=== PATIENT | female | born 1935 | race Caucasian/White ===

== ENCOUNTER 2018-05-02 15:27 | Observation (INO) ==
--- NOTE | 2018-05-02 15:48 | Emergency Department Note ---
Disposition Clinical Impression: Weakness, Shortness of breath Failure to thrive Qualifiers: Failure to thrive age range: in adult Qualified Code(s): R62.7 - Adult failure to thrive Disposition: Still a Patient Condition: Fair Referrals: Tu Rascon DO [Primary Care Provider] - Forms: ED Satisfaction Letter, Work/School Release Time of Disposition: 17:45 General Adult HPI - General Chief complaint: ED Abdominal Pain Stated complaint: BILLIE Time Seen by Provider: 05/02/18 15:33 Source: patient, family Limitations: no limitations Nursing Notes Reviewed: Yes Vital Signs Reviewed: Yes - History of Present Illness HPI Narrative: 82-year-old female presents from home with [id number] bedside for evaluation of weakness and shortness of breath. This was present 7 days ago upon admission to this hospital for in STEMI with the patient had a stent placement in LAD. She was discharged 5 days ago. Since then, she has had worsening shortness of breath, worsening weakness. Shortness of breath and weakness worsened with mild exertion. She has difficulty ambulating, nausea, chills. She has been compliant with her medications. Patient lives at home with her son. She does have a walker however, she for currently has to sit and rest as well as use the bro and table tops for support. Her appetite is dwindling. She states that she feels like she is just getting weaker and weaker. PMH: Hypertension, hyperlipidemia, CAD status post PCI. No history of COPD or tobacco use. ROS: Positive: As above Negative: Fever, chest pain, palpitations, diaphoresis, numbness, tingling, falls, confusion Pain Scale: 0 - Related Data Home Medications Medication Instructions Recorded Confirmed Amlodipine Besylate 5 mg PO DAILY 04/25/18 05/02/18 raNITIdine HCl [Zantac] 150 mg PO BID 04/25/18 05/02/18 Previous Rx's Medication Instructions Recorded Aspirin 81 mg PO DAILY #30 tab.chew 04/27/18 Atorvastatin [Lipitor] 40 mg PO HS #30 tablet 04/27/18 Lisinopril [Zestril] 10 mg PO DAILY #30 tablet 04/27/18 Metoprolol XL (24 HR) Succ [Toprol 50 mg PO DAILY #30 tab.er.24h 04/27/18 Xl] Ticagrelor [Brilinta] 90 mg PO BID #60 tablet 04/27/18 Allergies Allergy/AdvReac Type Severity Reaction Status Date / Time No Known Allergies Allergy Verified 04/25/18 10:27 All systems ED: reviewed and negative except as stated. Review of Systems: As Per HPI Past Medical History - Past Medical History Medical history: Reports: arthritis, GERD, hyperlipidemia, hypertension, myocardial infarction Psychiatric history: Reports: no psych history - Social History Smoking Status: Never smoker Smokeless Tobacco Status: No Alcohol use: Reports: none Drug use: Reports: none Physical Exam Vital Signs Reviewed General: Patient is alert, oriented, and in mild distress-she feels short of breath was oxygenating well on room air, has chills. Head: atraumatic, normocephalic Eye: normal appearance, PERRL, EOMI, no scleral icterus, no conjunctival injection ENT: mucous membranes moist, normal external ear exam Neck: normal inspection, trachea midline, full ROM Chest: normal inspection, symmetric chest rise Respiratory: Good respiratory effort. Bilateral breath sounds are clear without wheezing, crackles, or rhonchi. Cardiovascular: Regular rate and rhythm. No clicks, rubs, gallops, or murmors. Normal heart sounds. Bilateral posterior tibial pulses 2/4 and equal. Abdomen: Bowel sounds present normoactive. Abdomen is soft, nondistended. Suprapubic tenderness. No guarding or rebound. Musculoskeletal: Spontaneously moving all extremities. Skin: warm, dry, intact. Neuro: GCS 15. Alert and oriented x4. Psych: Patient's affect is appropriate for situation. - General Limitations: no limitations General appearance: alert, in no apparent distress Course Course Narrative: Initial concern is for potential UTI as the patient had a Agarwal catheter on previous admission and has suprapubic tenderness. Will also perform chest pain workup chest x-ray. Cadd Operator report from 04/27/2018 showed LUCY placed to mid LAD. LV EF 30-35%. EKG dated 05/02/2018 at 15:38 interpreted as sinus rhythm with a rate of 77. AK 183, QRS 111, QTC 48. Left axis. Left anterior fascicular block. T-wave inversions in precordial leads new from comparison EKG dated 04/25/2018. Serum hematology is unremarkable. No leukocytosis, leukocytopenia, left shift, or anemia. Serum chemistry shows a troponin of 0.08. This is trending down from her NSTEMI 7 days ago. Patient is compliant with her aspirin and brilenta and has no chest pain. CTA chest and chest x-ray are unremarkable. On reevaluation, patient continues to feel weak with tachypnea. Concern for generalized weakness, potential failure to thrive, and shortness of breath. After discussing with the patient and [id number] at bedside, they do not feel safe going home. I am concerned for her weakness, dyspnea, and probable failure to thrive. Patient potentially could benefit from rehabilitation. Patient and family are agreeable to admission. I discussed the above with the admitting hospitalist, Dr. Fischer, who agrees to accept the patient. Chest X-Ray 05/02/18 15:44 IMPRESSION: Clear lungs. No acute abnormality. No significant change from the prior study. Slight bullous changes suspected. D/ / Saad Francois MD / Saad Francois MD Interpreting Provider: Saad Francois MD Chest CTA 05/02/18 17:51 IMPRESSION: 1. No pulmonary embolus. 2. Scattered areas of streaky atelectasis within the lung parenchyma. 3. Small hiatal hernia. 4. Hepatic steatosis. D/ / Ferdinand Jovel / Ferdinand Jovel Interpreting Provider: Ferdinand Jovel Vital Signs Temperature 97.8 F 05/02/18 15:32 Pulse Rate 75 05/02/18 15:32 Respiratory Rate 22 05/02/18 15:32 Blood Pressure 156/89 05/02/18 15:32 O2 Sat by Pulse Oximetry 100 05/02/18 15:32 Temperature 97.8 F 05/02/18 15:32 Pulse Rate 72 05/02/18 19:14 Respiratory Rate 20 05/02/18 19:14 Blood Pressure 118/67 05/02/18 19:14 O2 Sat by Pulse Oximetry 99 05/02/18 19:14 Oxygen Delivery Oxygen Delivery Nasal Cannula Medical Decision Making - Lab Data Result diagrams: 05/02/18 15:50 12/03/18 15:50 Lab Results 05/02/18 05/02/18 05/02/18 Range/Units 15:50 15:50 15:50 WBC 8.5 (4.3-11.1) K/mcL RBC 4.74 (3.82-4.97) M/mcL Hgb 14.5 (11.5-15.4) g/dL Hct 43.7 (35.3-44.9) % MCV 92.2 (83.0-100.0) fL MCH 30.6 (28.0-33.3) pg MCHC 33.2 (31.6-35.5) g/dL RDW 13.9 (11.5-14.5) % Plt Count 326 (140-400) K/mcL MPV 10.5 (9.4-12.4) fL Immature Gran % 0.2 (0-4) % Seg Neutrophils % 64.4 % Lymphocytes % 24.4 % Monocytes % 9.1 % Eosinophils % 1.5 % Basophils % 0.4 % Neutrophils # 5.5 (1.6-8.9) K/mcL Lymphocytes # 2.1 (0.6-4.6) K/mcL Monocytes # 0.8 (0.0-1.3) K/mcL Eosinophils # 0.1 (0.0-0.6) K/mcL Basophils # 0.0 (0.0-0.2) K/mcL Sample Site ABG pH (7.32-7.45) pH Units ABG pCO2 (35-45) mmHg ABG pO2 (85-104) mmHg ABG HCO3 (21-27) mEq/L ABG Total CO2 (20-26) mEq/L ABG O2 Saturation (95-98) % ABG Base Excess (-2 to 3) mEq/L Fadi Test O2 Delivery Device Inspired O2 (1-15=lpm [id number]=%) Sodium 137 (136-145) mEq/L Potassium 4.6 (3.5-5.1) mEq/L Chloride 104 (98-107) mEq/L Carbon Dioxide 22 L (23-29) mEq/L BUN 23 (8-23) mg/dL Creatinine 1.20 (0.60-1.20) mg/dL Est GFR ( Amer) 52 L (> 60) Est GFR (Non-Af Amer) 43 L (> 60) BUN/Creatinine Ratio 19 (6-26) Glucose 106 H (70-105) mg/dL Calculated Osmolality 288 (280-300) Lactic Acid 1.1 (0.5-2.2) mmol/L Calcium 10.1 (8.6-10.3) mg/dL Magnesium 2.0 (1.6-2.6) mg/dL Total Bilirubin 0.7 (0.3-1.0) mg/dL AST 30 (13-39) Units/L ALT 34 (7-52) Units/L Alkaline Phosphatase 71 (34-104) Units/L Troponin I 0.08 H* (< 0.04) ng/mL Serum Total Protein 7.3 (6.4-8.9) g/dL Albumin 4.4 (3.5-5.7) g/dL Globulin 2.9 (2.4-3.5) g/dL Albumin/Globulin Ratio 1.5 (1.1-2.2) Urine Color (Yellow) Urine Clarity (Clear) Urine pH (5.0-8.0) pH Units Ur Specific [place] (1.010-1.025) Urine Protein (Neg-Trace) mg/dL Urine Glucose (UA) (Normal) mg/dL Urine Ketones (Negative) mg/dL Urine Blood (Negative) Urine Nitrite (Negative) Urine Bilirubin (Negative) Urine Urobilinogen (Normal) mg/dL Ur Leukocyte Esterase (Negative) Urine Microscopic RBC (0-3) per hpf Urine Microscopic WBC (0-3) per hpf Ur Squamous Epith Cells (None-Few) per lpf Urine Bacteria (None-Few) per hpf Hyaline Casts (None-Few) per lpf Ur Culture Indicated? (NO) 05/02/18 05/02/18 Range/Units 16:02 17:30 WBC (4.3-11.1) K/mcL RBC (3.82-4.97) M/mcL Hgb (11.5-15.4) g/dL Hct (35.3-44.9) % MCV (83.0-100.0) fL MCH (28.0-33.3) pg MCHC (31.6-35.5) g/dL RDW (11.5-14.5) % Plt Count (140-400) K/mcL MPV (9.4-12.4) fL Immature Gran % (0-4) % Seg Neutrophils % % Lymphocytes % % Monocytes % % Eosinophils % % Basophils % % Neutrophils # (1.6-8.9) K/mcL Lymphocytes # (0.6-4.6) K/mcL Monocytes # (0.0-1.3) K/mcL Eosinophils # (0.0-0.6) K/mcL Basophils # (0.0-0.2) K/mcL Sample Site L Radial ABG pH 7.50 H (7.32-7.45) pH Units ABG pCO2 25 L (35-45) mmHg ABG pO2 99 (85-104) mmHg ABG HCO3 20 L (21-27) mEq/L ABG Total CO2 20 (20-26) mEq/L ABG O2 Saturation 98 (95-98) % ABG Base Excess -2 (-2 to 3) mEq/L Fadi Test Positive O2 Delivery Device Cannula Inspired O2 2.0 (1-15=lpm [id number]=%) Sodium (136-145) mEq/L Potassium (3.5-5.1) mEq/L Chloride (98-107) mEq/L Carbon Dioxide (23-29) mEq/L BUN (8-23) mg/dL Creatinine (0.60-1.20) mg/dL Est GFR ( Amer) (> 60) Est GFR (Non-Af Amer) (> 60) BUN/Creatinine Ratio (6-26) Glucose (70-105) mg/dL Calculated Osmolality (280-300) Lactic Acid (0.5-2.2) mmol/L Calcium (8.6-10.3) mg/dL Magnesium (1.6-2.6) mg/dL Total Bilirubin (0.3-1.0) mg/dL AST (13-39) Units/L ALT (7-52) Units/L Alkaline Phosphatase (34-104) Units/L Troponin I (< 0.04) ng/mL Serum Total Protein (6.4-8.9) g/dL Albumin (3.5-5.7) g/dL Globulin (2.4-3.5) g/dL Albumin/Globulin Ratio (1.1-2.2) Urine Color Yellow (Yellow) Urine Clarity Clear (Clear) Urine pH 6.0 (5.0-8.0) pH Units Ur Specific [place] 1.006 L (1.010-1.025) Urine Protein Negative (Neg-Trace) mg/dL Urine Glucose (UA) Normal (Normal) mg/dL Urine Ketones Negative (Negative) mg/dL Urine Blood Moderate H (Negative) Urine Nitrite Negative (Negative) Urine Bilirubin Negative (Negative) Urine Urobilinogen Normal (Normal) mg/dL Ur Leukocyte Esterase Negative (Negative) Urine Microscopic RBC 5-15 H (0-3) per hpf Urine Microscopic WBC 0-3 (0-3) per hpf Ur Squamous Epith Cells Many H (None-Few) per lpf Urine Bacteria Few (None-Few) per hpf Hyaline Casts None Seen (None-Few) per lpf Ur Culture Indicated? NO (NO)
--- NOTE | 2018-05-02 15:52 | Emergency Department Note ---
Disposition Clinical Impression: Weakness, Shortness of breath, Failure to thrive Disposition: Admitted As Inpatient Condition: Fair Referrals: Tu Rascon DO [Primary Care Provider] - Forms: ED Satisfaction Letter, Work/School Release General Adult HPI - General Chief complaint: ED Shortness of Breath/Dyspnea Stated complaint: BILLIE Time Seen by Provider: 05/02/18 15:33 Source: patient, family Limitations: no limitations - History of Present Illness Pain Scale: 0 - Related Data Home Medications Medication Instructions Recorded Confirmed Amlodipine Besylate 5 mg PO DAILY 04/25/18 05/02/18 raNITIdine HCl [Zantac] 150 mg PO BID 04/25/18 05/02/18 Previous Rx's Medication Instructions Recorded Aspirin 81 mg PO DAILY #30 tab.chew 04/27/18 Atorvastatin [Lipitor] 40 mg PO HS #30 tablet 04/27/18 Lisinopril [Zestril] 10 mg PO DAILY #30 tablet 04/27/18 Metoprolol XL (24 HR) Succ [Toprol 50 mg PO DAILY #30 tab.er.24h 04/27/18 Xl] Ticagrelor [Brilinta] 90 mg PO BID #60 tablet 04/27/18 Allergies Allergy/AdvReac Type Severity Reaction Status Date / Time No Known Allergies Allergy Verified 04/25/18 10:27 Past Medical History - Past Medical History Medical history: Reports: arthritis, GERD, hyperlipidemia, hypertension, myocardial infarction Psychiatric history: Reports: no psych history - Social History Smoking Status: Never smoker Smokeless Tobacco Status: No Alcohol use: Reports: none Drug use: Reports: none Physical Exam - General Limitations: no limitations General appearance: alert, in no apparent distress Course Vital Signs Temperature 97.8 F 05/02/18 15:32 Pulse Rate 75 05/02/18 15:32 Respiratory Rate 22 05/02/18 15:32 Blood Pressure 156/89 05/02/18 15:32 O2 Sat by Pulse Oximetry 100 05/02/18 15:32 Temperature 97.8 F 05/02/18 15:32 Pulse Rate 72 05/02/18 19:14 Respiratory Rate 20 05/02/18 19:14 Blood Pressure 118/67 05/02/18 19:14 O2 Sat by Pulse Oximetry 99 05/02/18 19:14 Oxygen Delivery Oxygen Delivery Nasal Cannula Medical Decision Making - MDM Narrative Medical decision making narrative: CTA chest neg for PE admit pt does not feel comfortable going home. no other sig lab findings trop trending down from last visit - Medical Records Medical records reviewed: Yes I reviewed the patient's medical records. - Lab Data Lab results reviewed: Yes I reviewed the patient's lab results. Result diagrams: 05/02/18 15:50 05/02/18 15:50 Lab Results 05/02/18 05/02/18 05/02/18 Range/Units 15:50 15:50 15:50 WBC 8.5 (4.3-11.1) K/mcL RBC 4.74 (3.82-4.97) M/mcL Hgb 14.5 (11.5-15.4) g/dL Hct 43.7 (35.3-44.9) % MCV 92.2 (83.0-100.0) fL MCH 30.6 (28.0-33.3) pg MCHC 33.2 (31.6-35.5) g/dL RDW 13.9 (11.5-14.5) % Plt Count 326 (140-400) K/mcL MPV 10.5 (9.4-12.4) fL Immature Gran % 0.2 (0-4) % Seg Neutrophils % 64.4 % Lymphocytes % 24.4 % Monocytes % 9.1 % Eosinophils % 1.5 % Basophils % 0.4 % Neutrophils # 5.5 (1.6-8.9) K/mcL Lymphocytes # 2.1 (0.6-4.6) K/mcL Monocytes # 0.8 (0.0-1.3) K/mcL Eosinophils # 0.1 (0.0-0.6) K/mcL Basophils # 0.0 (0.0-0.2) K/mcL Sample Site ABG pH (7.32-7.45) pH Units ABG pCO2 (35-45) mmHg ABG pO2 (85-104) mmHg ABG HCO3 (21-27) mEq/L ABG Total CO2 (20-26) mEq/L ABG O2 Saturation (95-98) % ABG Base Excess (-2 to 3) mEq/L Fadi Test O2 Delivery Device Inspired O2 (1-15=lpm [id number]=%) Sodium 137 (136-145) mEq/L Potassium 4.6 (3.5-5.1) mEq/L Chloride 104 (98-107) mEq/L Carbon Dioxide 22 L (23-29) mEq/L BUN 23 (8-23) mg/dL Creatinine 1.20 (0.60-1.20) mg/dL Est GFR ( Amer) 52 L (> 60) Est GFR (Non-Af Amer) 43 L (> 60) BUN/Creatinine Ratio 19 (6-26) Glucose 106 H (70-105) mg/dL Calculated Osmolality 288 (280-300) Lactic Acid 1.1 (0.5-2.2) mmol/L Calcium 10.1 (8.6-10.3) mg/dL Magnesium 2.0 (1.6-2.6) mg/dL Total Bilirubin 0.7 (0.3-1.0) mg/dL AST 30 (13-39) Units/L ALT 34 (7-52) Units/L Alkaline Phosphatase 71 (34-104) Units/L Troponin I 0.08 H* (< 0.04) ng/mL Serum Total Protein 7.3 (6.4-8.9) g/dL Albumin 4.4 (3.5-5.7) g/dL Globulin 2.9 (2.4-3.5) g/dL Albumin/Globulin Ratio 1.5 (1.1-2.2) Urine Color (Yellow) Urine Clarity (Clear) Urine pH (5.0-8.0) pH Units Ur Specific [place] (1.010-1.025) Urine Protein (Neg-Trace) mg/dL Urine Glucose (UA) (Normal) mg/dL Urine Ketones (Negative) mg/dL Urine Blood (Negative) Urine Nitrite (Negative) Urine Bilirubin (Negative) Urine Urobilinogen (Normal) mg/dL Ur Leukocyte Esterase (Negative) Urine Microscopic RBC (0-3) per hpf Urine Microscopic WBC (0-3) per hpf Ur Squamous Epith Cells (None-Few) per lpf Urine Bacteria (None-Few) per hpf Hyaline Casts (None-Few) per lpf Ur Culture Indicated? (NO) 05/02/18 05/02/18 Range/Units 16:02 17:30 WBC (4.3-11.1) K/mcL RBC (3.82-4.97) M/mcL Hgb (11.5-15.4) g/dL Hct (35.3-44.9) % MCV (83.0-100.0) fL MCH (28.0-33.3) pg MCHC (31.6-35.5) g/dL RDW (11.5-14.5) % Plt Count (140-400) K/mcL MPV (9.4-12.4) fL Immature Gran % (0-4) % Seg Neutrophils % % Lymphocytes % % Monocytes % % Eosinophils % % Basophils % % Neutrophils # (1.6-8.9) K/mcL Lymphocytes # (0.6-4.6) K/mcL Monocytes # (0.0-1.3) K/mcL Eosinophils # (0.0-0.6) K/mcL Basophils # (0.0-0.2) K/mcL Sample Site L Radial ABG pH 7.50 H (7.32-7.45) pH Units ABG pCO2 25 L (35-45) mmHg ABG pO2 99 (85-104) mmHg ABG HCO3 20 L (21-27) mEq/L ABG Total CO2 20 (20-26) mEq/L ABG O2 Saturation 98 (95-98) % ABG Base Excess -2 (-2 to 3) mEq/L Fadi Test Positive O2 Delivery Device Cannula Inspired O2 2.0 (1-15=lpm [id number]=%) Sodium (136-145) mEq/L Potassium (3.5-5.1) mEq/L Chloride (98-107) mEq/L Carbon Dioxide (23-29) mEq/L BUN (8-23) mg/dL Creatinine (0.60-1.20) mg/dL Est GFR ( Amer) (> 60) Est GFR (Non-Af Amer) (> 60) BUN/Creatinine Ratio (6-26) Glucose (70-105) mg/dL Calculated Osmolality (280-300) Lactic Acid (0.5-2.2) mmol/L Calcium (8.6-10.3) mg/dL Magnesium (1.6-2.6) mg/dL Total Bilirubin (0.3-1.0) mg/dL AST (13-39) Units/L ALT (7-52) Units/L Alkaline Phosphatase (34-104) Units/L Troponin I (< 0.04) ng/mL Serum Total Protein (6.4-8.9) g/dL Albumin (3.5-5.7) g/dL Globulin (2.4-3.5) g/dL Albumin/Globulin Ratio (1.1-2.2) Urine Color Yellow (Yellow) Urine Clarity Clear (Clear) Urine pH 6.0 (5.0-8.0) pH Units Ur Specific [place] 1.006 L (1.010-1.025) Urine Protein Negative (Neg-Trace) mg/dL Urine Glucose (UA) Normal (Normal) mg/dL Urine Ketones Negative (Negative) mg/dL Urine Blood Moderate H (Negative) Urine Nitrite Negative (Negative) Urine Bilirubin Negative (Negative) Urine Urobilinogen Normal (Normal) mg/dL Ur Leukocyte Esterase Negative (Negative) Urine Microscopic RBC 5-15 H (0-3) per hpf Urine Microscopic WBC 0-3 (0-3) per hpf Ur Squamous Epith Cells Many H (None-Few) per lpf Urine Bacteria Few (None-Few) per hpf Hyaline Casts None Seen (None-Few) per lpf Ur Culture Indicated? NO (NO) - Radiology Data Radiology results reviewed: Yes I reviewed the patient's radiology results. Critical Care Time Critical Care Time: No Attestation Statement - Attestation Attestation: I examined this patient and my medical decision-making was reviewed with the Resident Physician. I agree with the documented findings, disposition and treatment plan as described except to the extent set forth below. 82 yo F here for sob, shakiness, gen weakness. here last week for NSTEMI with stent to mid-lad, EF 35%. Was here for SOB at that time as well. she has no CP. just weakness, sob increasing. has felt hot and cold. will eval for possible pneumonia and workup for sob, cardiac. check UA as well as she had a sanchez in place at that time. does not wear home O2. no lung history she states. ekg with changes.
[2018-05-02 16:10] LABS: Basophils % 0.4 %; Eosinophils # 0.1 K/mcL (0.0-0.6); Eosinophils % 1.5 %; Hematocrit 43.7 % (35.3-44.9); Hemoglobin 14.5 g/dL (11.5-15.4); Immature Granulocytes % 0.2 % (0-4); Lymphocytes # 2.1 K/mcL (0.6-4.6); Lymphocytes % 24.4 %; Mean Corpuscular HGB Conc 33.2 g/dL (31.6-35.5); Mean Corpuscular Hemoglobin 30.6 pg (28.0-33.3); Mean Corpuscular Volume 92.2 fL (83.0-100.0); Mean Platelet Volume 10.5 fL (9.4-12.4); Monocytes # 0.8 K/mcL (0.0-1.3); Monocytes % 9.1 %; Neutrophils # 5.5 K/mcL (1.6-8.9); Platelet Count 326 K/mcL (140-400); Red Blood Count 4.74 M/mcL (3.82-4.97); Red Cell Distribution Width 13.9 % (11.5-14.5); Segmented Neutrophils % 64.4 %
[2018-05-02 16:30] LABS: Bilirubin,Urine Negative (Negative); Blood,Urine Moderate (Negative); Clarity,Urine Clear (Clear); Color,Urine Yellow (Yellow); Glucose,Urine (UA) Normal (Normal); Ketones,Urine Negative (Negative); Leukocyte Esterase,Urine Negative (Negative); Nitrite,Urine Negative (Negative); Protein,Urine Negative (Neg-Trace); Specific Gravity,Urine 1.006 (1.010-1.025); Urobilinogen,Urine Normal (Normal)
[2018-05-02 16:32] LABS: Bacteria,Urine Few per hpf (None-Few); Hyaline Casts,Urine None Seen per lpf (None-Few); Squamous Epithelial Cell,Urine Many per lpf (None-Few); WBC,Urine 0-3 per hpf (0-3)
[2018-05-02 16:45] LABS: Troponin I 0.08 ng/mL (< 0.04)
[2018-05-02 16:48] LABS: Albumin 4.4 g/dL (3.5-5.7); Albumin/Globulin Ratio 1.5 (1.1-2.2); Bilirubin,Total 0.7 mg/dL (0.3-1.0); Calcium 10.1 mg/dL (8.6-10.3); Globulin 2.9 g/dL (2.4-3.5); Potassium 4.6 mEq/L (3.5-5.1); Total Protein 7.3 g/dL (6.4-8.9)
[2018-05-02 17:33] LABS: ABG Base Excess -2 mEq/L (-2 to 3); ABG HCO3 20 mEq/L (21-27); ABG Oxygen Saturation 98 % (95-98); ABG PCO2 25 mmHg (35-45); ABG PO2 99 mmHg (85-104); ABG TCO2 20 mEq/L (20-26)
[2018-05-02] MEDS ORDERED: *HR* LORazepam 2 MG/ML VIAL IVP ONE (17:48)
[2018-05-02] MEDS ORDERED: Isovue-370 500 ML INFUS..BTL IV ONE (17:51)
[2018-05-02] MEDS ORDERED: 0.9 % Sodium Chloride 500 ML IVC ONE (17:51)
[2018-05-02] MEDS ORDERED: Naloxone 0.4 MG/ML INJ IVP PRN (22:44)
[2018-05-02] MEDS ORDERED: 0.9 % Sodium Chloride 1,000 ML IVC ONE (23:07)
--- NOTE | 2018-05-02 23:31 | Internal Med History&Physical ---
Date of Encounter: 05/03/18 Time of Encounter: 22:20 Internal Medicine - H&P: HPI Chief complaint: Weakness Admitted From: Emergency Dept Plans for Post Hospital Care: Home History of present illness: Ms. Johnson is a 82 year old female Patient presented to the ER with weakness and shortness of breath since being discharged last week. She was initially admitted for chest pain, experienced the day before but she did not come to the hospital until the following wednesday. She was diagnosed with an NSTEMI, and was taken to the [facility] where it was discovered she had a 100% mid LAD with LUCY placed, 60% mid OM1. Echo also showed EF of 30-35%, with severe segmental LV systolic dysfunction, and ischemic cardiomyopathy. She states that she has had heart caths in the past, but does not remember being so weak afterwards. In the ER patient's CBC and BMP were within normal limits. Troponin elevated at 0.08, however this is less than her previous troponins during her prior admission. UA showed moderate blood but no nitrites or LEs. Chest x-ray showed clear lungs, with no abnormality, slight bullous changes were suspected. CTA was ordered and was negative for PE, but revealed streaky atelectasis and hepatic stetosis. She was admitted to the hospital for further management. Upon my evaluation, patient states that she still feels weak. She denes chest pain but has shortness of breath. She gets light headed when she sits up as well. She has a loss of appetite, denies being on home O2 and denies smoking history. She has mild nausea, but no vomiting, abdominal pain, diarrhea or constipation. She has not noted any vision changes. At her discharge last week, she was switched to a long acting beta rufina, but norvasc and kathia inhibitor were continued. Past Med Surg Social Fam HX - Past Medical History Medical history: arthritis, GERD, hyperlipidemia, hypertension, myocardial infarction Additional medical history: one stent placed Psychiatric history: no psych history - Social History Smoking Status: Never smoker Smokeless Tobacco Status: No Alcohol use: none Drug use: none - Family History Father Name: Yandel Living Status: Age at : 36 Cause of : MVA Internal Medicine - H&P: Meds Amlodipine Besylate 5 mg PO DAILY 04/25/18 [History] raNITIdine HCl [Zantac] 150 mg PO BID 04/25/18 [History] Aspirin 81 mg PO DAILY #30 tab.chew 04/27/18 [Rx] Atorvastatin [Lipitor] 40 mg PO HS #30 tablet 04/27/18 [Rx] Lisinopril [Zestril] 10 mg PO DAILY #30 tablet 04/27/18 [Rx] Metoprolol XL (24 HR) Succ [Toprol Xl] 50 mg PO DAILY #30 tab.er.24h 04/27/18 [Rx] Ticagrelor [Brilinta] 90 mg PO BID #60 tablet 04/27/18 [Rx] Allergy/AdvReac Type Severity Reaction Status Date / Time No Known Allergies Allergy Verified 04/25/18 10:27 All Systems PM: A 10-system review of systems was performed and is negative for pertinent fi ndings except as documented above in the HPI. - Constitutional Vitals: Temp Pulse Resp BP Pulse Ox 97.8 F 78 20 140/69 99 05/02/18 15:32 05/02/18 20:56 05/02/18 20:56 05/02/18 20:56 05/02/18 20:56 General appearance: Present: cooperative, mild distress, A&O X 3, answers questions appropriately Exam: As above - Head Head exam: Present: normal inspection - Eye Eye exam: Present: EOMI, normal appearance - Neck Neck exam general surgery: Absent: tenderness - Respiratory Respiratory exam: Present: CTAB. Absent: chest wall tenderness, decreased breath sounds, rales, wheezes - Cardiovascular Cardiovascular exam: Present: RRR. Absent: diastolic murmur, systolic murmur - GI/Abdominal GI/Abdominal exam: Present: normal bowel sounds, soft. Absent: tenderness - Extremities Exam Extremities exam: Present: warm, radial pulses palpable and symmetrical. Absent: calf tenderness, pedal edema, tenderness - Neurological Exam Neurological exam: Present: no focal deficits, strengths equal and symetr throughout. Absent: motor sensory deficit, facial droop, speech deficit - Skin Skin exam: Present: dry, normal color, warm Internal Med - H&P Results - Labs CBC & Chem 7: 05/03/18 05:03 05/03/18 05:03 Labs: Short CBC 05/02/18 Range/Units 15:50 WBC 8.5 (4.3-11.1) K/mcL Hgb 14.5 (11.5-15.4) g/dL Hct 43.7 (35.3-44.9) % Plt Count 326 (140-400) K/mcL Neutrophils # 5.5 (1.6-8.9) K/mcL BMP 05/02/18 15:50 Sodium 137 Potassium 4.6 Chloride 104 Carbon Dioxide 22 L BUN 23 Creatinine 1.20 Glucose 106 H Calcium 10.1 Cardiac Enzymes 05/02/18 Range/Units 15:50 Troponin I 0.08 H* (< 0.04) ng/mL Liver Function 05/02/18 Range/Units 15:50 Total Bilirubin 0.7 (0.3-1.0) mg/dL AST 30 (13-39) Units/L ALT 34 (7-52) Units/L Alkaline Phosphatase 71 (34-104) Units/L Albumin 4.4 (3.5-5.7) g/dL Urine 05/02/18 Range/Units 16:02 Urine Color Yellow (Yellow) Urine Clarity Clear (Clear) Urine pH 6.0 (5.0-8.0) pH Units Ur Specific [place] 1.006 L (1.010-1.025) Urine Protein Negative (Neg-Trace) mg/dL Urine Glucose (UA) Normal (Normal) mg/dL - ABG Interpretation ABG results: 05/02/18 17:30 ABG pH 7.50 H ABG pCO2 25 L ABG pO2 99 ABG HCO3 20 L ABG Total CO2 20 ABG O2 Saturation 98 ABG Base Excess -2 - Impressions ITS Impressions Chest X-Ray 05/02/18 15:44 IMPRESSION: Clear lungs. No acute abnormality. No significant change from the prior study. Slight bullous changes suspected. D/ / Saad Francois MD / Saad Francois MD Interpreting Provider: Saad Francois MD Chest CTA 05/02/18 17:51 IMPRESSION: 1. No pulmonary embolus. 2. Scattered areas of streaky atelectasis within the lung parenchyma. 3. Small hiatal hernia. 4. Hepatic steatosis. D/ / Ferdinand Jovel / Ferdinand Jovel Interpreting Provider: Ferdinand Jovel - Assessment and plan (1) Weakness Current Visit: Yes Status: Acute Assessment and plan: Likely secondary to ischemic cardiomyopathy. Patient recently discharged from the hospital after NSTEMI resulting in LAD stent. PT/OT consult Orthostatic vital signs in AM. Cardiology consult IV fluid hydration Hold blood pressure meds for now (2) Ischemic cardiomyopathy Current Visit: Yes Status: Acute Assessment and plan: As seen on on echo, has LVEF of 30-35%, severe segmental LV systolic dysfunction. Just discharged less than 1 week ago for NSTEMI Cardiology consult (3) Shortness of breath Current Visit: Yes Status: Acute Assessment and plan: Patient has had shortness of breath since her discharge last week. Likely rel ated to cardiomyopathy, seen on TTE. Chest x-ray and CTA normal. Cardiology consulted Oxygen as needed Bed side pulse ox (4) Elevated troponin Current Visit: No Status: Acute Assessment and plan: Trending down from last week, patient does not currently have chest pain. Continue to trend troponins nuclear monitoring technician Cardiology consult. (5) Hypertension Current Visit: No Status: Chronic Assessment and plan: Chronic, holding home meds due to weakness. Qualifiers: Hypertension type: essential hypertension Qualified Code(s): I10 - Essential (primary) hypertension (6) DVT prophylaxis Current Visit: No Status: Resolved Assessment and plan: Subcutaneous heparin - Time Spent With Patient Total time spent is greater than 50% in coordination of care (as documented) at patient's floor/unit and/or counseling patient: Greater than 35 minutes
[2018-05-02] MEDS: Famotidine 20 MG TABLET PO SCH (23:53)
[2018-05-02] MEDS: *HR* Ticagrelor 90 MG TABLET PO SCH (23:53)
[2018-05-03 05:16] LABS: Hematocrit 39.3 % (35.3-44.9); Mean Corpuscular HGB Conc 32.6 g/dL (31.6-35.5); Mean Corpuscular Hemoglobin 30.3 pg (28.0-33.3); Mean Corpuscular Volume 93.1 fL (83.0-100.0); Mean Platelet Volume 10.4 fL (9.4-12.4); Platelet Count 294 K/mcL (140-400); Red Blood Count 4.22 M/mcL (3.82-4.97)
[2018-05-03 05:21] LABS: Hemoglobin 12.8 g/dL (11.5-15.4)
[2018-05-03 05:34] LABS: Calcium 8.7 mg/dL (8.6-10.3); Potassium 4.1 mEq/L (3.5-5.1)
[2018-05-03] MEDS: *HR* Heparin 5,000 UNIT/ML VIAL SQ SCH ×2 (06:21→17:02)
--- NOTE | 2018-05-03 08:35 | Electrocardiograph Report ---
[address] [place] [address] Test Date: 2018-05-02 Pat Name: Elizabeth Johnson Department: EXAM1 Room: 3B21 Gender: F Product Delivery Specialist: : [id number] Requested By: Stephen Jain Order Number: [id number] Reading MD: Sameer Valverde Measurements Intervals [place] Rate: 77 P: 70 ND: 183 QRS: -71 QRSD: 111 T: 90 QT: 431 QTc: 488 Interpretive Statements Sinus rhythm Left anterior fascicular block Probable anterior infarct, age indeterminate Electronically Signed On 05-03-2018 8:34:38 EST by Sameer Valverde
[2018-05-03] MEDS: *HR* Ticagrelor 90 MG TABLET PO SCH (09:16)
[2018-05-03] MEDS: Aspirin 81 MG TAB.CHEW PO SCH (09:16)
[2018-05-03] MEDS: Famotidine 20 MG TABLET PO SCH ×2 (09:16→17:02)
--- NOTE | 2018-05-03 09:46 | Cardiology Consult Note ---
<Colt Santos - Last Filed: 05/03/18 10:36> Date of Encounter: 05/03/18 Time of Encounter: 09:45 Assessment and Plan (1) Weakness Current Visit: Yes Status: Acute Per Cardiology: Presented with weakness and shortness of breath since stenting one week ago. Status post non-STEMI with peak troponin of 2.86 and EF noted to be 30-35%. Suspect multifactorial causes. On statin therapy, LFT stable, will check CK. PT and social work consults pending for evaluation regarding potential for rehabilitation. (2) Shortness of breath Current Visit: Yes Status: Acute Per Cardiology: CT negative for PE. Chest x-ray stable. Patient on Brilinta-- received dose this morning. Discussed and reviewed with Dr. Choi. We will discontinue and start Plavix 300 mg by mouth times one tonight and 65 mg by mouth daily to assess for improvement in short of breath symptoms. We will check a limited echo to assess for any decrease in EF from last week. (3) Ischemic cardiomyopathy Current Visit: Yes Status: Acute Per Cardiology: Echo 03/2018: Impressions: LVEF 30-35%. Mildly dilated left ventricle. Mild concentric left ventricular hypertrophy. Mild left ventricular diastolic dysfunction. Normal right ventricular structure and function. Mild mitral regurgitation. Mild pulmonary hypertension. Net I&O positive +1500ml. Chest x-ray clear. On beta rufina. Euvolemic on exam. Recommend continue beta rufina. Consider addition of GIANNI inhibitor. (4) Elevated troponin Current Visit: No Status: Acute Per Cardiology: Peak troponin 2.86 during non-STEMI last week, current troponin is downward trending 0.08, 0.07, and 0.05. Do not suspect non-STEMI. No cardiac rehabilitation consult warranted again. Discussion w patient/family: The assessment and plan as outlined above was discussed with the patient and/or family members who expressed understanding and agreement. All questions were an swered. Thank you for involving us in the care of your patient. Please call with any questions. History of Present Illness Consult date: 05/03/18 Requesting physician: Alfred Winchester Consult reason: SOB, Weakness Chief complaint: SOB, Weakness History of present illness: Ms. Johnson is a 82 year old female with a relevant past medical history of CAD s/p PCI, HTN, HLD who presented about one week ago with abdominal pain and diagnosed with non-STEMI. Underwent left heart catheterization. Cardiology consult for shortness of breath and weakness since catheterization. Patient seen with daughter at bedside. Reports progressive worsening shortness of breath at rest. Reports generalized weakness and no energy with fatigue. They both report the symptoms worsen prior to last hospital stay after stenting. She denies any chest pain symptoms. Reports compliance with medication regimen. Reports had one-day episode of some chills with some diarrhea, currently resolved. Denies any palpitations, dizziness, syncope, falls. Denies any active bleeding or blood loss. Past Med Surg Social Fam HX - Past Medical History Attestation: Yes The following information was validated with the patient. Source: patient, old records reviewed, obtained from family Medical history: arthritis, cardiomyopathy, coronary artery disease, GERD, hyperlipidemia, hypertension, myocardial infarction Additional medical history: one stent placed Psychiatric history: no psych history - Social History Smoking Status: Never smoker Smokeless Tobacco Status: No Alcohol use: none Drug use: none - Family History Father Name: Yandel Living Status: Age at : 36 Cause of : MVA Medications and Allergies Amlodipine Besylate 5 mg PO DAILY 04/25/18 [History] raNITIdine HCl [Zantac] 150 mg PO BID 04/25/18 [History] Aspirin 81 mg PO DAILY #30 tab.chew 04/27/18 [Rx] Atorvastatin [Lipitor] 40 mg PO HS #30 tablet 04/27/18 [Rx] Lisinopril [Zestril] 10 mg PO DAILY #30 tablet 04/27/18 [Rx] Metoprolol XL (24 HR) Succ [Toprol Xl] 50 mg PO DAILY #30 tab.er.24h 04/27/18 [Rx] Ticagrelor [Brilinta] 90 mg PO BID #60 tablet 04/27/18 [Rx] Allergy/AdvReac Type Severity Reaction Status Date / Time No Known Allergies Allergy Verified 04/25/18 10:27 All Systems Review: The remainder of the systems were reviewed and are negative - Constitutional Constitutional: fatigue, weakness - Cardiovascular Cardiovascular: as per HPI, dyspnea at rest, dyspnea on exertion Physical Examination Vital Signs, Last 4 Hours Temp Pulse Resp BP Pulse Ox 05/03/18 06:46 98.1 F 74 15 125/76 98 General: Conversant, No Apparent Distress HEENT: Atraumatic, Normocephaly, Mucus Membranes Moist Neck: No JVD, Normal carotid pulses Cardiac: Reg Rate and Rhythm, Normal S1 and S2, No Murmur Lungs: Normal Breath Sounds, No Wheeze, Rales, Rhonchi, Other (Conversational dyspnea noted) Neuro: Alert and responsive, No focal deficits noted Abdomen: Soft, Non-Tender Skin: No rashes noted on visualized skin Musculoskeletal: No Chest Wall Tenderness Extremities: No Clubbing, No Cyanosis, No Edema, Normal Pulses Results 05/03/18 05:03 05/03/18 05:03 Lab Results Laboratory Tests 04/26/18 05/02/18 05/02/18 00:21 15:50 22:57 Hgb Hct Creatinine Est GFR (Non-Af Amer) Magnesium 2.0 AST 30 ALT 34 Troponin I 2.86 H* 0.08 H* 0.07 H* 05/03/18 05/03/18 05/03/18 05:03 05:03 05:03 Hgb 12.8 D Hct 39.3 Creatinine 1.30 H Est GFR (Non-Af Amer) 39 L Magnesium AST ALT Troponin I 0.05 H* ITS Impressions Chest X-Ray 05/02/18 15:44 IMPRESSION: Clear lungs. No acute abnormality. No significant change from the prior study. Slight bullous changes suspected. D/ / Saad Francois MD / Saad Francois MD Interpreting Provider: Saad Francois MD Chest CTA 05/02/18 17:51 IMPRESSION: 1. No pulmonary embolus. 2. Scattered areas of streaky atelectasis within the lung parenchyma. 3. Small hiatal hernia. 4. Hepatic steatosis. D/ / Ferdinand Jovel / Ferdinand Jovel Interpreting Provider: Ferdinand Jovel Active Medications Aspirin (Aspirin) 81 mg PO DAILY AGUSTINA Stop: 11/02/18 09:01 Last Admin: 05/03/18 09:16 Dose: 81 mg Atorvastatin Calcium (Lipitor) 40 mg PO HS AGUSTINA Stop: 11/01/18 23:31 Last Admin: 05/02/18 23:54 Dose: 40 mg Carvedilol (Coreg) 6.25 mg PO BIDWM [facility]; Protocol Stop: 11/02/18 08:42 Famotidine (Pepcid) 20 mg PO BIDAC [facility] Stop: 11/01/18 23:31 Last Admin: 05/03/18 09:16 Dose: 20 mg Heparin Sodium (Porcine) (Heparin) 5,000 unit SQ Q12HCO [facility] Stop: 11/02/18 06:01 Last Admin: 05/03/18 06:21 Dose: 5,000 unit Naloxone HCl (Narcan) 0.4 mg IVP Q2MIN PRN PRN Reason: SEE COMMENTS Stop: 11/01/18 22:45 Ticagrelor (Brilinta) 90 mg PO BID [facility] Stop: 11/01/18 23:31 Last Admin: 05/03/18 09:16 Dose: 90 mg - Imaging and Cardiology Echo: report reviewed Cardiac cath: report reviewed - EKG Interpretation EKG results cardiology: personally reviewed (Sinus rhythm the 70s, comparable to previous ECG), other (Telemetry reviewed with average heart rate past 12 hours 73, sinus rhythm, currently sinus rhythm in the 60s, no events noted) Consult Discharge Plan - Plan Referrals: Tu Rascon DO [Primary Care Provider] - <Xiomy Choi - Last Filed: 05/03/18 15:14> Date of Encounter: 05/03/18 - Attending Attestation I examined this patient and my medical decision-making was reviewed with the REAL ESTATE DIRECTOR. I agree with the documented findings, disposition and treatment plan as described. Ms. Johnson presents with SOB and weakness. Recently admitted with NSTEMI s/p PCI. At the bedside the patient appears comfortable, NAD, sleeping but arousable and AAOx3 No concerning exam findings, no new cardiac murmur, euvolemic Vital signs reviewed - stable Labs reviewed, normal CK, troponins downtrended from last week ECG reviewed - no new acute findings CT PE ruled out CXR stable Impression: 1. SOB - Suspect Brilinta as culprit. Agree with transitioning to plavix. Otherwise, CXR stable and CT PE negative. Limited Echo pending. 2. Weakness - etiology unclear. No new anemia. CK normal (recently switched to lipitor from zocor). Possibly multifactorial and in part due to recent hospitalization and deconditioning. We have decided also to switch patient back to her original statin and stop lipitor. May consider changing coreg pending re-evaluation tomorrow. 3. Ischemic cardiomyopathy - EF 30-35%, appears euvolemic on exam. CXR clear. Continue BB, consider addition of ACEI. Assessment and Plan Discussion w patient/family: The assessment and plan as outlined above was discussed with the patient and/or family members who expressed understanding and agreement. All questions were answered. Thank you for involving us in the care of your patient. Please call with any questions. History of Present Illness History of present illness: Ms. Johnson is a 82 year old female All Systems Review: The remainder of the systems were reviewed and are negative Physical Examination Vital Signs, Last 4 Hours Temp Pulse Resp BP Pulse Ox 05/03/18 11:43 98.1 F 71 15 131/81 97 Results 05/03/18 05:03 05/03/18 05:03 Lab Results 05/02/18 05/02/18 05/02/18 15:50 15:50 22:57 WBC 8.5 Hgb 14.5 Hct 43.7 Plt Count 326 Sodium 137 Potassium 4.6 Chloride 104 Carbon Dioxide 22 L BUN 23 Creatinine 1.20 Glucose 106 H Calcium 10.1 Magnesium 2.0 Total Bilirubin 0.7 AST 30 ALT 34 Alkaline Phosphatase 71 Troponin I 0.08 H* 0.07 H* 05/03/18 05/03/18 05/03/18 05:03 05:03 05:03 WBC 8.1 Hgb 12.8 D Hct 39.3 Plt Count 294 Sodium 139 Potassium 4.1 Chloride 110 H Carbon Dioxide 22 L BUN 19 Creatinine 1.30 H Glucose 102 Calcium 8.7 Magnesium Total Bilirubin AST ALT Alkaline Phosphatase Troponin I 0.05 H*
--- NOTE | 2018-05-03 12:05 | Event Note ---
Date of Encounter: 05/03/18 Time of Encounter: 12:00 - Cardiology Event Note Laboratory Tests 05/03/18 05:03 Creatine Kinase 55
--- NOTE | 2018-05-03 13:11 | Internal Med Progress Note ---
Hospitalist Progress Note - Encounter Date of Encounter: 05/03/18 Time of Encounter: 12:59 - Subjective Interval History: Ms. Johnson is a 82 year old female with known past medical history of CAD s/p PCI, HTN, HLD who recently had NSTEMI hd LHC had a 100% mid LAD with LUCY placed, 60% mid OM1 and EACHo showed EF of 30-35%, with severe segmental LV systolic dysfunction, and ischemic cardiomyopathy now she presented to ER with weakness and shortness of breath since being discharged last week. Her initial troponin @ 0.08. She was admitted in the hospital and placed her on court monitor. She denied any CP / SOB. Still feeling weak and lethargic. - Exam Vitals: Temp Pulse Resp BP Pulse Ox 98.1 F 71 15 131/81 97 05/03/18 11:43 05/03/18 11:43 05/03/18 11:43 05/03/18 11:43 05/03/18 11:43 Exam: Gen: Alert, awake, Oriented to time,place and person Chest: Diminished breath sounds B/L, No wheezing, No crackles, No rales Heart: S1S2+ RRR No murmurs Abd: Soft, NT, BS +, No organomegaly Ext: No edema, pulses are palpable, No calf tenderness Neuro : Benign findings Skin: No rash. - Assessment and Plan (1) Shortness of breath Current Visit: Yes Status: Acute Assessment and Plan: Pt appears euvolemic no signs of volume overload concerning for Brilinta side effect Cardiology recommend to d/c Brillinta and start her on Plavix will do Plavix loading tonight appreciate cardiology recommendations (2) Physical deconditioning Current Visit: Yes Status: Acute Assessment and Plan: PT / OT eval (3) Ischemic cardiomyopathy Current Visit: Yes Status: Acute Assessment and Plan: Not in exacerbation repeat 2 D Echo today (4) Weakness Current Visit: Yes Status: Acute (5) Elevated troponin Current Visit: No Status: Acute Assessment and Plan: Slightly elevated troponin.. trended down compare to recent NSTEMI mostly demand ischemia and recent C too trending down (6) Dyslipidemia Current Visit: No Status: Chronic Assessment and Plan: on Statin (7) Hypertension Current Visit: No Status: Chronic Assessment and Plan: resumed all home meds (8) Systolic CHF, chronic Current Visit: Yes Status: Acute Assessment and Plan: not in exacerbation no need of diuresis resumed all home meds - Time Spent with Patient Total time spent is greater than 50% in coordination of care (as documented) at patient's floor/unit and/or counseling patient: Internal Medicine: Result - Labs CBC & Chem 7: 05/03/18 05:03 05/03/18 05:03 Labs: Short CBC 05/02/18 05/03/18 Range/Units 15:50 05:03 WBC 8.5 8.1 (4.3-11.1) K/mcL Hgb 14.5 12.8 D (11.5-15.4) g/dL Hct 43.7 39.3 (35.3-44.9) % Plt Count 326 294 (140-400) K/mcL Neutrophils # 5.5 (1.6-8.9) K/mcL BMP 05/02/18 05/03/18 15:50 05:03 Sodium 137 139 Potassium 4.6 4.1 Chloride 104 110 H Carbon Dioxide 22 L 22 L BUN 23 19 Creatinine 1.20 1.30 H Glucose 106 H 102 Calcium 10.1 8.7 Cardiac Enzymes 05/02/18 05/02/18 05/03/18 Range/Units 15:50 22:57 05:03 Troponin I 0.08 H* 0.07 H* 0.05 H* (< 0.04) ng/mL Liver Function 05/02/18 Range/Units 15:50 Total Bilirubin 0.7 (0.3-1.0) mg/dL AST 30 (13-39) Units/L ALT 34 (7-52) Units/L Alkaline Phosphatase 71 (34-104) Units/L Albumin 4.4 (3.5-5.7) g/dL Urine 05/02/18 Range/Units 16:02 Urine Color Yellow (Yellow) Urine Clarity Clear (Clear) Urine pH 6.0 (5.0-8.0) pH Units Ur Specific [place] 1.006 L (1.010-1.025) Urine Protein Negative (Neg-Trace) mg/dL Urine Glucose (UA) Normal (Normal) mg/dL - ABG Interpretation ABG results: ABG ABG pH 7.50 pH Units (7.32-7.45) H 05/02/18 17:30 ABG pCO2 25 mmHg (35-45) L 05/02/18 17:30 ABG pO2 99 mmHg (85-104) 05/02/18 17:30 ABG O2 Saturation 98 % (95-98) 05/02/18 17:30 - Impressions Impressions Chest X-Ray 05/02/18 15:44 IMPRESSION: Clear lungs. No acute abnormality. No significant change from the prior study. Slight bullous changes suspected. D/ / Saad Francois MD / Saad Francois MD Interpreting Provider: Saad Francois MD Chest CTA 05/02/18 17:51 IMPRESSION: 1. No pulmonary embolus. 2. Scattered areas of streaky atelectasis within the lung parenchyma. 3. Small hiatal hernia. 4. Hepatic steatosis. D/ / Ferdinand Jovel / Ferdinand Jovel Interpreting Provider: Ferdinand Jovel Consult Discharge Plan - Plan Referrals: Tu Rascon DO [Primary Care Provider] - (7) Hypertension Qualifiers: Hypertension type: essential hypertension Qualified Code(s): I10 - Essential (primary) hypertension
[2018-05-03] MEDS ORDERED: Perflutren Lipid Microsphere 1.3 ML in 0.9 % Sodium Chloride 8.7 ML IVP ONE (19:02)
[2018-05-04] MEDS: *HR* Heparin 5,000 UNIT/ML VIAL SQ SCH (05:54)
[2018-05-04] MEDS: Aspirin 81 MG TAB.CHEW PO SCH (08:08)
[2018-05-04] MEDS: Famotidine 20 MG TABLET PO SCH ×2 (08:09→16:43)
[2018-05-04 11:50] VITALS: BP 114/68
--- NOTE | 2018-05-04 12:37 | Cardiology Progress Note ---
Date of Encounter: 05/04/18 Time of Encounter: 12:36 Assessment and Plan (1) Weakness Current Visit: Yes Status: Acute Per Cardiology: Presented with weakness and dyspnea s/p NSTEMI and PCI one week ago. Peak troponin at that time of 2.86 and EF noted to be 30-35%. Suspect multifactorial causes--CMP, CAD, recent hospitalization. On statin therapy, LFT stable, CK normal. Statin changed from Lipitor to Zocor. PT and social work consults for evaluation regarding potential for rehabilitation. Cardiology signing off. Reconsult PRN. Follow-up outpt as planned. (2) CAD (coronary artery disease) Current Visit: Yes Status: Acute [facility] 04/25/18 severe one vessel coronary artery disease. EF 30% Patient had successful PTCA/Drug-Eluting Stent placement in the mid LAD. Brilinta switched to Plavix. Recommend DAPT (ASA and Plavix) uninterrupted x 1 year. Pt verbalizes understanding. Continue Statin, BB. Recommend ACEi prior to d/c if renal function will tolerate. Qualifiers: Coronary Disease-Associated Artery/Lesion type: [place] artery [place] vs. transplanted heart: [place] heart Associated angina: without angina Qualified Code(s): I25.10 - Atherosclerotic heart disease of [place] coronary artery without angina pectoris (3) Elevated troponin Current Visit: No Status: Acute Per Cardiology: Peak troponin 2.86 during non-STEMI last week, current troponin is downward trending 0.08, 0.07, and 0.05. Do not suspect non-STEMI. No cardiac rehabilitation consult warranted again. (4) Shortness of breath Current Visit: Yes Status: Acute Per Cardiology: CT negative for PE. CXR stable. Patient was on Brilinta. Given possible cause of dyspnea, was switched to Plavix--loaded with 300mg once then started on 75mg daily. Pt reports dyspnea today is improved. TTE EF remained unchanged 30-35%. (5) Ischemic cardiomyopathy Current Visit: Yes Status: Acute Per Cardiology: Echo 04/26/2018: LVEF 30-35%. Mildly dilated LV, mild cLVH, mild MR, mild phtn. TTE repeated current stay--EF unchanged, 30-35%, regional wall motion abnormalities. Net I&O positive +2200ml, but no outpt has been documented. Inaccurate. Chest x- ray clear. On beta rufina. Euvolemic on exam. Continue BB. Would recommend ACEi prior to d/c if renal function will tolerate. Creatinine mildly worsened today, 1.30. Discussion w patient/family: The assessment and plan as outlined above was discussed with the patient and/or family members who expressed understanding and agreement. All questions were answered. Thank you for involving us in the care of your patient. Please call with any questions. Subjective Principal diagnosis: weakness Interval history: Pt reports feeling better today. Dyspnea improved. TTE resulted--EF 30-35%, same as prior. Objective Vital Signs, Last 4 Hours Temp Pulse Resp BP Pulse Ox 05/04/18 11:48 98.2 F 59 16 114/68 97 Vital Signs Temp Pulse Resp BP Pulse Ox 05/04/18 11:48 98.2 F 59 16 114/68 97 05/04/18 06:49 97.6 F 60 16 129/71 95 05/04/18 02:57 98.6 F 68 16 143/84 95 05/03/18 22:56 98.4 F 74 16 134/78 96 05/03/18 18:43 98.5 F 68 16 125/79 96 05/03/18 15:53 98.0 F 60 14 104/71 97 Intake and Output 05/03/18 05/04/18 05/04/18 23:59 07:59 15:59 Intake Total 510 / 510 Balance 510 / 510 Intake: Oral 510 / 510 Other: Meal Breakfast Percent of Meal Consumed 10% Weight 79.6 kg Patient Weight 05/04/18 23:59 Weight 79.6 kg General: Conversant, No Apparent Distress HEENT: Atraumatic, Normocephaly, Mucus Membranes Moist Neck: No JVD, Normal carotid pulses Cardiac: Reg Rate and Rhythm, Normal S1 and S2, No Murmur Lungs: Normal Breath Sounds, No Wheeze, Rales, Rhonchi Neuro: Alert and responsive, No focal deficits noted Abdomen: Soft, Non-Tender Skin: No rashes noted on visualized skin Musculoskeletal: No Chest Wall Tenderness Extremities: No Clubbing, No Cyanosis, No Edema, Normal Pulses Results 05/03/18 05:03 05/03/18 05:03 Impressions Echocardiogram Limited Views 05/03/18 10:35 Impressions: LVEF 30-35%. Normal LV chamber size, wall thickness. Severe segmental left ventricular systolic dysfunction. There is no LV thrombus. Left Ventricular Wall Motion: Rest Echo Findings The apex, apical inferior, apical anterior, apical septal, mid inferior septal, apical lateral and mid anterior septal bro were hypokinetic. All other wall segments showed normal motion. Findings: Study Quality * Technically adequate exam. ECG Findings * Normal sinus rhythm. Left Ventricle * LVEF 30-35%. * Normal LV chamber size, wall thickness. * Severe segmental left ventricular systolic dysfunction. * There is no LV thrombus. Active Medications Aspirin (Aspirin) 81 mg PO DAILY COUNT INCLUDES THE [facility] Stop: 11/02/18 09:01 Last Admin: 05/04/18 08:08 Dose: 81 mg Carvedilol (Coreg) 6.25 mg PO BIDWM COUNT INCLUDES THE [facility]; Protocol Stop: 11/02/18 08:42 Last Admin: 05/04/18 08:09 Dose: 6.25 mg Clopidogrel Bisulfate (Plavix) 75 mg PO DAILY COUNT INCLUDES THE [facility] Stop: 11/03/18 09:01 Last Admin: 05/04/18 08:08 Dose: 75 mg Famotidine (Pepcid) 10 mg PO BIDAC COUNT INCLUDES THE [facility] Stop: 11/01/18 23:31 Last Admin: 05/04/18 08:09 Dose: 10 mg Heparin Sodium (Porcine) (Heparin) 5,000 unit SQ Q12HCO COUNT INCLUDES THE [facility] Stop: 11/02/18 06:01 Last Admin: 05/04/18 05:54 Dose: 5,000 unit Naloxone HCl (Narcan) 0.4 mg IVP Q2MIN PRN PRN Reason: SEE COMMENTS Stop: 11/01/18 22:45 Simvastatin (Zocor) 20 mg PO HS COUNT INCLUDES THE [facility]; Protocol Stop: 11/02/18 21:01 Last Admin: 05/03/18 21:26 Dose: 20 mg - Imaging and Cardiology Echo: report reviewed Cardiac cath: report reviewed - EKG Interpretation EKG results cardiology: other (12 hr tele AVG HR 62, SR.) Consult Discharge Plan - Plan Referrals: Tu Rascon DO [Primary Care Provider] -
--- NOTE | 2018-05-04 13:46 | Discharge Summary ---
- NOTES TO OUTPATIENT PROVIDER Notes to Outpatient Provider: Follow up with PCP in one week. Follow-up with cardiology in one to 2 weeks. Please stopped taking Bryllinta, Metoprolol Xl and Norvasc. New medication started here Plavix 75mg PO Daily and Coreg 6.25mg PO BID Date of Encounter: 05/04/18 Time of Encounter: 13:39 - Discharge Diagnosis (1) Shortness of breath Priority: Primary Status: Acute (2) Physical deconditioning Priority: Secondary Status: Acute (3) Ischemic cardiomyopathy Priority: Secondary Status: Acute (4) Weakness Priority: Secondary Status: Acute (5) Elevated troponin Priority: Secondary Status: Acute (6) Dyslipidemia Priority: Secondary Status: Chronic (7) Hypertension Priority: Secondary Status: Chronic Qualifiers: Hypertension type: essential hypertension Qualified Code(s): I10 - Essential (primary) hypertension (8) Systolic CHF, chronic Priority: Secondary Status: Acute Hospital course: Ms. Johnson is a 82 year old female with known past medical history of CAD s/p PCI, HTN, HLD who recently had NSTEMI hd LHC had a 100% mid LAD with LUCY placed, 60% mid OM1 and EACHo showed EF of 30-35%, with severe segmental LV systolic dysfunction, and ischemic cardiomyopathy now she presented to ER with weakness and shortness of breath since being discharged last week. Her initial troponin @ 0.08 slightly elevated and adynamic @ 0.05 . She was admitted in the hospital and placed her on cardiac surgeon. Her SOB concerning for Brilinta side effect. Pt was evaluated by cardiology who recommended to d/c Brillinta and started her on Plavix, also switched to Coreg from Metoprolol. Pt has been doing well since then. Pt was evaluated by PT / OT who recommend home health PT / OT. So will d/c her to home in stable condition today. - Time Spent with Patient Total time spent providing and/or coordinating discharge services: - Discharge Medications Prescriptions: Carvedilol [Coreg] 6.25 mg PO BIDWM #60 tablet Clopidogrel [Plavix] 75 mg PO DAILY #30 tablet Home Medications: raNITIdine HCl [Zantac] 150 mg PO BID 04/25/18 [History] Aspirin 81 mg PO DAILY #30 tab.chew 04/27/18 [Rx] Atorvastatin [Lipitor] 40 mg PO HS #30 tablet 04/27/18 [Rx] Lisinopril [Zestril] 10 mg PO DAILY #30 tablet 04/27/18 [Rx] Carvedilol [Coreg] 6.25 mg PO BIDWM #60 tablet 05/04/18 [Rx] Clopidogrel [Plavix] 75 mg PO DAILY #30 tablet 05/04/18 [Rx] Allergies/Adverse Reactions: Allergy/AdvReac Type Severity Reaction Status Date / Time No Known Allergies Allergy Verified 04/25/18 10:27 Date of admission: 05/02/18 20:38 Primary care physician: Tu Rascon Consults: 05/02/18 22:46 Consult to Occupational Therapy [CONS] Routine Comment: Evaluate, develop and implement POC Reason for Consult: Weakness since left heart catheter one week ago. Does patient have active BEDREST order?: No Is patient medically & hemodynamically stable?: Yes Consult to Physical Therapy [CONS] Routine Comment: Evaluate, develop and implement POC Reason for Consult: Weakness since left heart catheter one week ago. Patient having difficulty walking secondary to weakness. Does patient have active BEDREST order?: No Is patient medically & hemodynamically stable?: Yes 05/02/18 22:51 Consult to Cardiology [CONS] Routine Comment: Consulting Provider: Cardiology Tricia Reason for Consult: Recent LHC 1 week ago, patient has had weakness and shortness of breath since procedure. Call Completed: No - Constitutional Vitals: Temp Pulse Resp BP Pulse Ox 98.2 F 59 16 114/68 97 05/04/18 11:48 05/04/18 11:48 05/04/18 11:48 05/04/18 11:48 05/04/18 11:48 General appearance: Present: cooperative, A&O X 3, answers questions appropriately Exam: Gen: Alert, awake, Oriented to time,place and person Chest: Diminished breath sounds B/L, No wheezing, No crackles, No rales Heart: S1S2+ RRR No murmurs Abd: Soft, NT, BS +, No organomegaly Ext: No edema, pulses are palpable, No calf tenderness Neuro : Benign findings Skin: No rash. - Patient Status Disposition: Home Health Service Condition: Good Overall status at discharge: patient is back to baseline - Discharge Instructions Follow Up With: Tu Rascon DO [Primary Care Provider] - Luis Armstrong MD [Partnered Physician] - - Diet and Activity Activity: increase activity as tolerated Diet: low salt diet
--- NOTE | 2018-05-04 13:48 | Physician Discharge Referral ---
Home Health/Hosp Referral Info Transfer to: Home Health Provider in Charge Post Discharge: PCP - Diagnosis (1) Shortness of breath Status: Acute (2) Physical deconditioning Status: Acute (3) Ischemic cardiomyopathy Status: Acute (4) Weakness Status: Acute (5) Elevated troponin Status: Acute (6) Dyslipidemia Status: Chronic (7) Hypertension Status: Chronic (8) Systolic CHF, chronic Status: Acute - Respiratory Orders Smoking Cessation: Smoking cessation has been advised. For more information, call the [place] Tobacco Quit Line at 4-631-RSOH-NOW. - Transfer Medications Prescriptions: Carvedilol [Coreg] 6.25 mg PO BIDWM #60 tablet Clopidogrel [Plavix] 75 mg PO DAILY #30 tablet Home Medications: raNITIdine HCl [Zantac] 150 mg PO BID 04/25/18 [History] Aspirin 81 mg PO DAILY #30 tab.chew 04/27/18 [Rx] Atorvastatin [Lipitor] 40 mg PO HS #30 tablet 04/27/18 [Rx] Lisinopril [Zestril] 10 mg PO DAILY #30 tablet 04/27/18 [Rx] Carvedilol [Coreg] 6.25 mg PO BIDWM #60 tablet 05/04/18 [Rx] Clopidogrel [Plavix] 75 mg PO DAILY #30 tablet 05/04/18 [Rx] Allergies/Adverse Reactions: Allergy/AdvReac Type Severity Reaction Status Date / Time No Known Allergies Allergy Verified 04/25/18 10:27 Certification: Further, I certify that my clinical findings support that this patient is homebound (i.e. absences from home require considerable and taxing effort and are for medical reasons or [facility] services or infrequently or short duration when for other reasons) because: Homebound Reason: Patient requires assistance of a person or device to safely leave home Attestation: My signature below is to certify that this patient is under my care and that I, or nurse practitioner, or a physician's surveyor's assistant working with me, has a [id number] encounter with this patient.
--- NOTE | 2018-05-04 14:12 | Physician Discharge Referral ---
Home Health/Hosp Referral Info Transfer to: Home Health Provider in Charge Post Discharge: PCP - Diagnosis (1) Shortness of breath Status: Acute (2) Physical deconditioning Status: Acute (3) Ischemic cardiomyopathy Status: Acute (4) Weakness Status: Acute (5) Elevated troponin Status: Acute (6) Dyslipidemia Status: Chronic (7) Hypertension Status: Chronic (8) Systolic CHF, chronic Status: Acute - Respiratory Orders Smoking Cessation: Smoking cessation has been advised. For more information, call the [place] Tobacco Quit Line at 0-581-LZET-NOW. - Services Needed Following services are medically necessary services: Nursing, Physical Therapy, Occupational Therapy - Transfer Medications Prescriptions: Carvedilol [Coreg] 6.25 mg PO BIDWM #60 tablet Clopidogrel [Plavix] 75 mg PO DAILY #30 tablet Home Medications: raNITIdine HCl [Zantac] 150 mg PO BID 04/25/18 [History] Aspirin 81 mg PO DAILY #30 tab.chew 04/27/18 [Rx] Atorvastatin [Lipitor] 40 mg PO HS #30 tablet 04/27/18 [Rx] Lisinopril [Zestril] 10 mg PO DAILY #30 tablet 04/27/18 [Rx] Carvedilol [Coreg] 6.25 mg PO BIDWM #60 tablet 05/04/18 [Rx] Clopidogrel [Plavix] 75 mg PO DAILY #30 tablet 05/04/18 [Rx] Allergies/Adverse Reactions: Allergy/AdvReac Type Severity Reaction Status Date / Time No Known Allergies Allergy Verified 04/25/18 10:27 Certification: Further, I certify that my clinical findings support that this patient is homebound (i.e. absences from home require considerable and taxing effort and are for medical reasons or islam services or infrequently or short duration when for other reasons) because: Homebound Reason: Patient requires assistance of a person or device to safely leave home Attestation: My signature below is to certify that this patient is under my care and that I, or nurse practitioner, or a physician's expanded function dental assistant working with me, has a [id number] encounter with this patient.
== END 2018-05-04 17:25 | disposition home health service (06) ==
LOC: 3BNU 15:27 → EMEROOARM 15:27 → SUATTDRO 20:38 → 3BNU 22:14
PROVIDERS: ADMIT Pediatrics; ATTEND Family Medicine

== ENCOUNTER 2018-07-18 07:11 | Observation (INO) ==
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
[2018-07-18] MEDS ORDERED: Aspirin 81 MG TAB.CHEW PO STA (07:20)
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
[2018-07-18 08:03] LABS: Basophils % 0.4 %; Eosinophils # 0.2 K/mcL (0.0-0.6); Eosinophils % 1.8 %; Hematocrit 44.5 % (35.3-44.9); Hemoglobin 14.5 g/dL (11.5-15.4); Immature Granulocytes % 0.5 % (0-4); Lymphocytes # 1.4 K/mcL (0.6-4.6); Lymphocytes % 14.6 %; Mean Corpuscular HGB Conc 32.6 g/dL (31.6-35.5); Mean Corpuscular Hemoglobin 30.3 pg (28.0-33.3); Mean Corpuscular Volume 93.1 fL (83.0-100.0); Mean Platelet Volume 11.4 fL (9.4-12.4); Monocytes # 0.9 K/mcL (0.0-1.3); Monocytes % 9.3 %; Neutrophils # 6.9 K/mcL (1.6-8.9); Platelet Count 190 K/mcL (140-400); Red Blood Count 4.78 M/mcL (3.82-4.97); Red Cell Distribution Width 13.4 % (11.5-14.5); Segmented Neutrophils % 73.4 %
[2018-07-18 08:20] LABS: Potassium 4.2 mEq/L (3.5-5.1)
[2018-07-18 08:23] LABS: Troponin I 0.06 ng/mL (< 0.04)
[2018-07-18] MEDS ORDERED: 0.9 % Sodium Chloride 1,000 ML IVC ONE (08:24)
[2018-07-18] MEDS ORDERED: Naloxone 0.4 MG/ML INJ IVP PRN (10:42)
[2018-07-18] MEDS ORDERED: GI Cocktail 40 ML EACH PO ONE (11:15)
--- NOTE | 2018-07-18 11:40 | Internal Med History&Physical ---
Date of Encounter: 07/18/18 Time of Encounter: 08:30 Internal Medicine - H&P: HPI Chief complaint: Chest pain Admitted From: Home Plans for Post Hospital Care: Home History of present illness: Ms. Johnson is a 83 year old female with a past medical history of coronary artery disease status post multiple drug-eluting stents most recently in March 2018, hypertension, hyperlipidemia and severe arthritis and degenerativ e back disease who presented with chest pain that started in the midepigastric region and woke her up from sleep at around 6:30 AM this morning. The patient is currently undergoing a significant stressor in the form of a in the family and in fact the services are supposed to be held tomorrow. She was recently in the hospital for similar issues and underwent a cardiac consultation. She tells me that the pain was roughly 10/10 in severity when she woke up and lasted for about 15 minutes. It was described a sharp and radiating to her neck as well as to the back of her chest cage. She kept laying through the pain for about 15 minutes and it eventually went away. She did not take any aspirin or nitroglycerin for the same. This was also associated with some diaphoresis, anxiety as well as a feeling of heartburn. This pain again came back and that is what prompted her to come to the ER. While in the emergency room the patient received an aspirin and nitroglycerin and her pain really went away. She does endorse increasing heartburn and acid reflux over the last several days. On further questioning, She does state that she has been taking Aleve up to 4 tablets almost every day since last April for her arthritis pain in addition to Tylenol. She denies any blood in the stools, melena or any diarrhea or vomiting. she did state that right after her last stent was placed she was started on Brilinta but was taken off due to dyspnea and switched to Plavix. She also tells me that she has not missed any of her medication doses. In the ER she also was found to have a creatinine of greater than 2. Her baseline is right around 1.3. Past Med Surg Social Fam HX - Past Medical History Medical history: arthritis, cardiomyopathy, coronary artery disease, GERD, hyperlipidemia, hypertension, myocardial infarction Additional medical history: one stent placed Psychiatric history: depression - Past Surgical History Additional surgical history: hand surgery, bladder surgery, hysterectomy, stents x5, hip sx - Social History Smoking Status: Never smoker Smokeless Tobacco Status: No Alcohol use: none Drug use: none - Family History Father Living Status: - Additional Family History Additional family history: She denies any family history of gastroesophageal reflux disease in her parents Internal Medicine - H&P: Meds Aspirin 81 mg PO DAILY #30 tab.chew 04/27/18 [Rx] Atorvastatin [Lipitor] 40 mg PO HS #30 tablet 04/27/18 [Rx] Lisinopril [Zestril] 10 mg PO DAILY #30 tablet 04/27/18 [Rx] Carvedilol [Coreg] 6.25 mg PO BIDWM #60 tablet 05/04/18 [Rx] Clopidogrel [Plavix] 75 mg PO DAILY #30 tablet 05/04/18 [Rx] Docusate [Colace] 100 mg PO DAILY 07/14/18 [History] Allergy/AdvReac Type Severity Reaction Status Date / Time No Known Allergies Allergy Verified 04/25/18 10:27 All Systems PM: A 10-system review of systems was performed and is negative for pertinent findings except as documented above in the HPI. - Constitutional Vitals: Temp Pulse Resp BP Pulse Ox 98.0 F 60 14 126/72 97 07/18/18 10:17 07/18/18 10:17 07/18/18 10:17 07/18/18 10:17 07/18/18 08:30 Exam: GENERAL: Alert, anxious , moderate distress, cooperative EYES: PERRLA, EOMI EARS: External ears normal, canals clear OROPHARYNX: Lips, mucosa, and tongue normal. Teeth and gums normal. Oropharynx normal. NECK: No jugulovenous distention, No carotid bruits, Carotid pulse normal contour, Supple LUNGS: Lungs clear to auscultation, Good diaphragmatic excursion CARDIAC: Normal S1 and S2; no rubs, murmurs, or gallops ABDOMEN: Abdomen soft, non-tender, BS normal, No masses or organomegaly EXTREMITIES: Extremities normal, no deformities, edema, clubbing or skin discoloration. Good capillary refill., No ulcers NEURO: Reflexes normal and symmetric. Sensation grossly intact, Cranial nerves II-XII intact PULSES: 2+ radial, 2+ carotid Rest of the exam is non contributory Internal Med - H&P Results - Labs CBC & Chem 7: 07/18/18 07:45 07/18/18 07:45 Labs: Short CBC 07/18/18 Range/Units 07:45 WBC 9.4 (4.3-11.1) K/mcL Hgb 14.5 (11.5-15.4) g/dL Hct 44.5 (35.3-44.9) % Plt Count 190 (140-400) K/mcL Neutrophils # 6.9 (1.6-8.9) K/mcL BMP 07/18/18 07:45 Sodium 140 Potassium 4.2 Chloride 104 Carbon Dioxide 25 BUN 45 H Creatinine 2.06 H Glucose 112 H Calcium 10.0 Cardiac Enzymes 07/18/18 Range/Units 07:45 Troponin I 0.06 H* (< 0.04) ng/mL - EKG Data -: EKG Interpreted by Myself EKG shows normal: ST-T waves (ST depressions from V1 through V6 which are old as compared to 4 days ago) - EKG Data Prior EKG available for review: yes When compared to previous EKG: there is no significant change Interpretation IM: other (Diffuse ST depressions from lead 1 through V6 seen 4 days ago as well. Unchanged) - Impressions ITS Impressions Chest X-Ray 07/18/18 07:16 IMPRESSION: No evidence of acute cardiopulmonary disease. No interval change. D/ / 07/18/2018 07:43:11 Manjit Romero MD / tiesha Interpreting Provider: Manjit Romero MD - Diagnostic Studies Chest x-ray Status: image reviewed by me (No focal areas of consolidation seen.) - Assessment and plan (1) Chest pain Current Visit: Yes Status: Acute Assessment and plan: The possible differential diagnosis at this point includes gastroesophageal reflux disease in the setting of significant NSAID usage versus coronary artery disease versus stress induced chest pain given the patient's recent family situation. She does have a significant cardiovascular history and that merits cycling her cardiac enzymes, placing her on telemetry monitoring for at least observation her in the hospital for the next several hours. Her troponin is slightly elevated but is being worse in the last several months when the trend is looked at in the EMR. Her troponin elevation could also be a measure of her elevated creatinine. The patient has been taking significantly large amounts of Aleve for her arthritis pain which can certainly cause gastritis and reflux. She is not on any acid suppressing medication on her medical regimen that I can see. In addition to working her up for an acute coronary syndrome, I will start her on GI cocktail, start a omeprazole and continue it for the next 2 weeks. The patient has a to go to tomorrow and hence keeping her from extended period of time in the hospital is not conducive . I have discussed her situation in detail with her primary care physician Dr. Rascon and we have come up with a plan that I will be discharging this patient as soon as her cardiac enzymes are negative later on tonight. The plan is that we will hold her lisinopril and Aleve and have her take Tylenol Extra Strength every 6 hours when necessary for her pain. She will be followed up by her primary care physician within the week and repeat at [facility] in order to resume lisinopril back. This was also discussed with patient's family members in attendance Anticipate potential discharge later on tonight. If there is worsening abnormality in her troponins or her chest pain comes back again or we see dynamic EKG changes, strongly consider cardiology consult. For now we will continue the dual antiplatelet therapy, beta rufina, statin Qualifiers: Chest pain type: unspecified Qualified Code(s): R07.9 - Chest pain, unspecified (2) Elevated troponin Current Visit: No Status: Acute Assessment and plan: As mentioned above this is chronic and could also be a factor of her elevated creatinine. Continue to monitor closely with serial cardiac enzymes. (3) Acute renal failure Current Visit: Yes Status: Acute Assessment and plan: Patient's baseline creatinine is somewhere around 1.3 so most likely she has CKD stage III. Her creatinine is worse today than it has been in the last several months. I strongly believe this could be a combination of her GIANNI inhibitor as well as the extra doses of Aleve that she was taking. She has already received 1 L of fluids from the ED which I will continue. Given the fact that most likely she will not be staying overnight if her cardiac workup is negative, I would hold her lisinopril for the next week, and encourag e fluid intake, hold all forms of Aleve and NSAIDs for pain and stick to Tylenol for arthritis relief and follow-up with her primary care physician within a week to check her BMP had her lisinopril can then be resumed as an outpatient. I have discussed this plan of care extensively with her primary care physician and her family at the bedside. Qualifiers: Acute renal failure type: unspecified Qualified Code(s): N17.9 - Acute kidney failure, unspecified (4) Dyslipidemia Current Visit: No Status: Chronic Assessment and plan: Continue statin for now. (5) Hypertension Current Visit: No Status: Chronic Assessment and plan: Her blood pressure currently stable. We will continue to monitor her on her home medication regimen except holding lisinopril given acute renal failure. Qualifiers: Hypertension type: essential hypertension Qualified Code(s): I10 - Essential (primary) hypertension - Time Spent With Patient Total time spent is greater than 50% in coordination of care (as documented) at patient's floor/unit and/or counseling patient: Greater than 35 minutes (More than 50% of time spent in [id number] counseling)
[2018-07-18] MEDS ORDERED: *HR* LORazepam 1 MG TABLET PO ONE (14:17)
--- NOTE | 2018-07-18 14:57 | Discharge Summary ---
- NOTES TO OUTPATIENT PROVIDER Notes to Outpatient Provider: Patient has been asked to follow-up with her primary care physician within a week with recheck of her BMP and creatinine. At that point I would also advise the physician to discuss with the primary care provider about starting lisinopril. She has also been given a prescription for generic Protonix to be taken once a day for total of 2-3 weeks duration. Orders not resulted at time of discharge: Pending orders 07/18/18 16:45 Troponin I Q6H 07/18/18 22:45 Troponin I Q6H 07/19/18 04:00 Basic Metabolic Panel AM 0400 Complete Blood Count [HEME] AM 0400 Date of Encounter: 07/18/18 Time of Encounter: 14:54 - Discharge Diagnosis (1) Chest pain Priority: Primary Status: Acute Qualifiers: Chest pain type: unspecified Qualified Code(s): R07.9 - Chest pain, unspecified (2) Elevated troponin Priority: Secondary Status: Acute (3) Acute renal failure Priority: Secondary Status: Acute Qualifiers: Acute renal failure type: unspecified Qualified Code(s): N17.9 - Acute kidney failure, unspecified (4) Dyslipidemia Priority: Secondary Status: Chronic (5) Hypertension Priority: Secondary Status: Chronic Qualifiers: Hypertension type: essential hypertension Qualified Code(s): I10 - Essential (primary) hypertension Hospital course: Ms. Johnson is a 83 year old female who was an observed in the hospital for chest pain which started early in the morning and woke her up from sleep. There was a high index of suspicion for gastrojejunal reflux disease given the patient's multiple pain medications especially her use of Aleve and more than the recommended dosing. She also was found to have mild acute on chronic renal failure and her lisinopril was held. She was checked with serial cardiac enzymes all of which were trending down. Her EKG did not suggest any new ischemia and neither did telemetry monitoring. She had 3 cardiac enzymes that were negative, it was decided to discharge her on her home regimen added Protonix generic. She is to follow up with her primary care physician within a week to check her creatinine and resume her lisinopril. She is also instructed to take more Tylenol arthritis [id number] other than Aleve for her pain medication in light of her renal failure. She did not have any new chest pain and found relief after GI cocktail was started. The patient does have a significant stressor going on in the family in the form of a of a loved one and she has to go for arrangements tomorrow Discharge discussed with: patient, family - Time Spent with Patient Total time spent providing and/or coordinating discharge services:45 min Both the admission and discharge [id number] encounters took place on the same calendar day greater than 8 hours apart. - Discharge Medications Prescriptions: Pantoprazole Sodium 40 mg PO DAILY #21 tablet. Home Medications: Aspirin 81 mg PO DAILY #30 tab.chew 04/27/18 [Rx] Atorvastatin [Lipitor] 40 mg PO HS #30 tablet 04/27/18 [Rx] Carvedilol [Coreg] 6.25 mg PO BIDWM #60 tablet 05/04/18 [Rx] Clopidogrel [Plavix] 75 mg PO DAILY #30 tablet 05/04/18 [Rx] Docusate [Colace] 100 mg PO DAILY 07/14/18 [History] Pantoprazole Sodium 40 mg PO DAILY #21 tablet. 07/18/18 [Rx] Allergies/Adverse Reactions: Allergy/AdvReac Type Severity Reaction Status Date / Time No Known Allergies Allergy Verified 04/25/18 10:27 Date of admission: 07/18/18 09:39 Primary care physician: Tu Rascon - Constitutional Vitals: Temp Pulse Resp BP Pulse Ox 98.0 F 63 16 126/57 98 07/18/18 12:25 07/18/18 12:25 07/18/18 12:25 07/18/18 12:25 07/18/18 12:25 Exam: See below - Head Head exam: Present: atraumatic, normocephalic - Neck Neck exam general surgery: Present: supple, trachea midline. Absent: lymphadenopathy - Cardiovascular Cardiovascular exam: Present: RRR, +S1, +S2. Absent: diastolic murmur, gallop, rubs, systolic murmur - GI/Abdominal GI/Abdominal exam: Present: normal bowel sounds, soft, no peritoneal signs. Absent: distended, tenderness - Patient Status Disposition: Home, Self-Care Condition: Good Functional capacity at discharge: independent ambulation Overall status at discharge: patient is back to baseline - Discharge Instructions Follow Up With: Tu Rascon, [Primary Care Provider] - - Diet and Activity Activity: increase activity as tolerated Diet: advance to your usual diet
[2018-07-18 16:09] VITALS: BP 159/72
[2018-07-19] MEDS ORDERED: Aspirin 81 MG TAB.CHEW PO SCH (09:00)
--- NOTE | 2018-07-20 09:25 | Electrocardiograph Report ---
[place] [id number] Test Date: 2018-07-18 Pat Name: Elizabeth Johnson Department: [id number] Room: 2S1 Gender: F [employer] Helper: : [id number] Requested By: Cordell Gilmore Order Number: [id number] Reading MD: Xiomy Choi Measurements Intervals [place] Rate: 56 P: 65 [place]: 182 QRS: -56 QRSD: 120 T: 135 QT: 483 QTc: 467 Interpretive Statements Sinus rhythm LVH with IVCD, LAD and secondary repol abnrm Electronically Signed On 07-20-2018 9:23:15 EST by Xiomy Choi
== END 2018-07-18 18:05 | disposition home or self-care (01) ==
LOC: EMEROOARM 07:11 → 2SOUTHHOLD 07:11 → SUATTDRO 09:39 → 2SOUTHHOLD 09:48
PROVIDERS: ADMIT Internal Medicine; ATTEND Internal Medicine

== ENCOUNTER 2020-05-22 16:39 | Observation (INO) ==
[2020-05-22] MEDS ORDERED: Furosemide 40 MG/4 ML VIAL IVP ONE (16:54)
[2020-05-22 17:22] LABS: Basophils % 0.5 %; Eosinophils # 0.2 K/mcL (0.0-0.6); Eosinophils % 2.2 %; Hematocrit 39.6 % (35.3-44.9); Hemoglobin 12.6 g/dL (11.5-15.4); Immature Granulocytes % 0.2 % (0-4); Lymphocytes # 2.1 K/mcL (0.6-4.6); Mean Corpuscular HGB Conc 31.8 g/dL (31.6-35.5); Mean Corpuscular Hemoglobin 31.3 pg (28.0-33.3); Mean Corpuscular Volume 98.3 fL (83.0-100.0); Mean Platelet Volume 10.7 fL (9.4-12.4); Monocytes # 0.7 K/mcL (0.0-1.3); Monocytes % 8.5 %; Neutrophils # 5.5 K/mcL (1.6-8.9); Platelet Count 265 K/mcL (140-400); Red Blood Count 4.03 M/mcL (3.82-4.97); Segmented Neutrophils % 64.6 %; White Blood Count 8.6 K/mcL (4.3-11.1)
[2020-05-22 17:29] LABS: Bilirubin,Urine Negative (Negative); Blood,Urine Negative (Negative); Clarity,Urine Clear (Clear); Color,Urine Colorless (Yellow); Glucose,Urine (UA) Normal (Normal); Ketones,Urine Negative (Negative); Leukocyte Esterase,Urine Negative (Negative); Nitrite,Urine Negative (Negative); PH,Urine 6.5 pH Units (5.0-8.0); Protein,Urine Negative (Neg-Trace); Specific Gravity,Urine 1.008 (1.010-1.025); Urobilinogen,Urine Normal (Normal)
[2020-05-22 17:30] LABS: INR 1.1; Prothrombin Time 12.3 Seconds (9.4-12.1)
[2020-05-22 17:50] LABS: BUN/Creatinine Ratio 21 (6-26); Blood Urea Nitrogen 29 mg/dL (8-23); Calcium 9.6 mg/dL (8.6-10.3); Carbon Dioxide 28 mEq/L (23-29); Chloride 105 mEq/L (98-107); Glucose 99 mg/dL (70-105); Osmolality,Calculated 300 (280-300); Sodium 142 mEq/L (136-145); Troponin I < 0.03 ng/mL (< 0.04); eGFR For African Americans 44 (> 60); eGFR For Non-African Americans 36 (> 60)
[2020-05-22] MEDS ORDERED: Naloxone 0.4 MG/ML INJ IVP PRN (18:18)
[2020-05-22] MEDS ORDERED: Ondansetron ODT 4 MG TAB.RAPDIS SL PRN (18:18)
[2020-05-22] MEDS ORDERED: Acetaminophen 325 MG TABLET PO PRN (18:18)
[2020-05-22] MEDS ORDERED: Perflutren Lipid Microsphere 1.3 ML in 0.9 % Sodium Chloride 8.7 ML IVP PRN (18:23)
[2020-05-22 19:00] LABS: Thyroid Stimulating Hormone 2.315 mcIU/mL (0.340-5.600)
[2020-05-23 01:53] LABS: Basophils % 0.4 %; Eosinophils # 0.2 K/mcL (0.0-0.6); Eosinophils % 1.7 %; Hematocrit 37.3 % (35.3-44.9); Hemoglobin 11.8 g/dL (11.5-15.4); Immature Granulocytes % 0.4 % (0-4); Lymphocytes # 2.1 K/mcL (0.6-4.6); Mean Corpuscular HGB Conc 31.6 g/dL (31.6-35.5); Mean Corpuscular Hemoglobin 30.3 pg (28.0-33.3); Mean Corpuscular Volume 95.6 fL (83.0-100.0); Monocytes # 0.8 K/mcL (0.0-1.3); Monocytes % 8.6 %; Neutrophils # 6.4 K/mcL (1.6-8.9); Platelet Count 247 K/mcL (140-400); Red Cell Distribution Width 13.9 % (11.5-14.5); Segmented Neutrophils % 66.9 %; White Blood Count 9.5 K/mcL (4.3-11.1)
[2020-05-23 02:19] LABS: Albumin 3.7 g/dL (3.5-5.7); Albumin/Globulin Ratio 1.3 (1.1-2.2); Bilirubin,Total 0.4 mg/dL (0.3-1.0); Calcium 9.3 mg/dL (8.6-10.3); Chol/HDL Ratio 2.7 (0-4.9); Globulin 2.8 g/dL (2.4-3.5); Magnesium 1.6 mg/dL (1.6-2.6); Phosphorous 1.7 mg/dL (2.7-4.5); Potassium 3.4 mEq/L (3.5-5.1); Total Protein 6.5 g/dL (6.4-8.9)
[2020-05-23] MEDS ORDERED: carvediloL 6.25 MG TABLET PO SCH (08:00)
[2020-05-23] MEDS: Aspirin 81 MG TAB.CHEW PO SCH (08:40)
[2020-05-23] MEDS: Gabapentin 100 MG CAPSULE PO SCH ×2 (08:40→20:44)
[2020-05-23] MEDS ORDERED: carvediloL 6.25 MG TABLET PO ONE (08:43)
[2020-05-23] MEDS ORDERED: Furosemide 20 MG/2 ML VIAL IVP ONE (08:46)
[2020-05-23] MEDS ORDERED: lisinopriL 5 MG TABLET PO SCH (09:00)
[2020-05-23] MEDS ORDERED: lisinopriL 20 MG TABLET PO SCH (09:30)
[2020-05-23] MEDS: lisinopriL 20 MG TABLET PO SCH (13:40)
[2020-05-23] MEDS: *HR* Heparin 5,000 UNIT/ML VIAL SQ SCH (17:28)
[2020-05-23] MEDS: carvediloL 6.25 MG TABLET PO SCH (17:28)
[2020-05-23] MEDS ORDERED: Furosemide 20 MG/2 ML VIAL IVP SCH (21:00)
[2020-05-24 03:00] LABS: Magnesium 1.6 mg/dL (1.6-2.6); Phosphorous 2.6 mg/dL (2.7-4.5)
[2020-05-24 03:01] LABS: Calcium 9.3 mg/dL (8.6-10.3); Potassium 3.6 mEq/L (3.5-5.1)
[2020-05-24] MEDS: *HR* Heparin 5,000 UNIT/ML VIAL SQ SCH (05:48)
[2020-05-24 07:18] VITALS: BP 113/78
[2020-05-24] MEDS ORDERED: Furosemide 40 MG TABLET PO SCH (09:00)
[2020-05-24] MEDS: Gabapentin 100 MG CAPSULE PO SCH (09:09)
[2020-05-24] MEDS: carvediloL 6.25 MG TABLET PO SCH (09:09)
[2020-05-24] MEDS: Aspirin 81 MG TAB.CHEW PO SCH (09:09)
[2020-05-24] MEDS: lisinopriL 20 MG TABLET PO SCH (09:15)
== END 2020-05-24 14:58 | disposition home health service (06) ==
LOC: EMEROOARM 16:39 → 3BNU 16:39 → SUATTDRO 18:38 → 3BNU 19:55
PROVIDERS: ADMIT Student in an Organized Health Care Education/Training Program; ATTEND Internal Medicine

== ENCOUNTER 2020-11-15 11:50 | Observation (INO) ==
[2020-11-15 12:19] LABS: Basophils % 0.6 %; Eosinophils # 0.4 K/mcL (0.0-0.6); Eosinophils % 6.1 %; Hematocrit 39.6 % (35.3-44.9); Hemoglobin 12.3 g/dL (11.5-15.4); Immature Granulocytes % 0.1 % (0-4); Lymphocytes # 1.3 K/mcL (0.6-4.6); Lymphocytes % 18.7 %; Mean Corpuscular HGB Conc 31.1 g/dL (31.6-35.5); Mean Corpuscular Hemoglobin 29.2 pg (28.0-33.3); Mean Corpuscular Volume 94.1 fL (83.0-100.0); Mean Platelet Volume 10.6 fL (9.4-12.4); Monocytes # 0.6 K/mcL (0.0-1.3); Monocytes % 8.1 %; Neutrophils # 4.7 K/mcL (1.6-8.9); Platelet Count 226 K/mcL (140-400); Red Blood Count 4.21 M/mcL (3.82-4.97); Red Cell Distribution Width 14.2 % (11.5-14.5); Segmented Neutrophils % 66.4 %; White Blood Count 7.1 K/mcL (4.3-11.1)
[2020-11-15 12:41] LABS: BUN/Creatinine Ratio 20 (6-26); Blood Urea Nitrogen 29 mg/dL (8-23); Calcium 9.8 mg/dL (8.6-10.3); Carbon Dioxide 28 mEq/L (23-29); Chloride 103 mEq/L (98-107); Glucose 106 mg/dL (70-105); Osmolality,Calculated 296 (280-300); Potassium 4.3 mEq/L (3.5-5.1); Sodium 140 mEq/L (136-145); Troponin I < 0.03 ng/mL (< 0.04); eGFR For African Americans 41 (> 60); eGFR For Non-African Americans 34 (> 60)
[2020-11-15] MEDS ORDERED: Aspirin 325 MG TABLET PO ONE (13:33)
[2020-11-15] MEDS ORDERED: Naloxone 0.4 MG/ML INJ IVP PRN (15:59)
[2020-11-15] MEDS ORDERED: Furosemide 40 MG/4 ML VIAL IVP ONE (16:01)
[2020-11-15] MEDS ORDERED: Perflutren Lipid Microsphere 1.3 ML in 0.9 % Sodium Chloride 8.7 ML IVP PRN (16:02)
[2020-11-15] MEDS: *HR* Heparin 5,000 UNIT/ML VIAL SQ SCH (17:30)
[2020-11-16 00:35] LABS: Hematocrit 38.2 % (35.3-44.9); Hemoglobin 12.1 g/dL (11.5-15.4); Mean Corpuscular HGB Conc 31.7 g/dL (31.6-35.5); Mean Corpuscular Hemoglobin 29.3 pg (28.0-33.3); Mean Corpuscular Volume 92.5 fL (83.0-100.0); Mean Platelet Volume 10.6 fL (9.4-12.4); Platelet Count 225 K/mcL (140-400); Red Blood Count 4.13 M/mcL (3.82-4.97); Red Cell Distribution Width 14.2 % (11.5-14.5); White Blood Count 6.9 K/mcL (4.3-11.1)
[2020-11-16 00:54] LABS: Calcium 9.5 mg/dL (8.6-10.3)
[2020-11-16] MEDS: Ondansetron 4 MG/2 ML VIAL IVP PRN (05:23)
[2020-11-16] MEDS: *HR* Heparin 5,000 UNIT/ML VIAL SQ SCH ×2 (05:24→18:06)
[2020-11-16] MEDS: carvediloL 6.25 MG TABLET PO SCH ×2 (07:50→18:06)
[2020-11-16] MEDS: Aspirin 81 MG TAB.CHEW PO SCH (07:50)
[2020-11-16] MEDS: lisinopriL 5 MG TABLET PO SCH (07:50)
[2020-11-16] MEDS: Furosemide 40 MG TABLET PO SCH (18:06)
[2020-11-17] MEDS: *HR* Heparin 5,000 UNIT/ML VIAL SQ SCH (06:20)
[2020-11-17] MEDS ORDERED: Regadenoson 0.4 MG/5 ML SYRINGE IVP ONE (07:18)
[2020-11-17] MEDS: carvediloL 6.25 MG TABLET PO SCH (09:21)
[2020-11-17] MEDS: lisinopriL 5 MG TABLET PO SCH (09:21)
[2020-11-17] MEDS: Furosemide 40 MG TABLET PO SCH ×2 (09:21→17:59)
[2020-11-17] MEDS: Aspirin 81 MG TAB.CHEW PO SCH (09:21)
[2020-11-17] MEDS ORDERED: carvediloL 6.25 MG TABLET PO ONE (11:16)
[2020-11-17] MEDS ORDERED: *HR* Heparin 5,000 UNIT/ML VIAL IVP PRN ×2 (11:16)
[2020-11-17] MEDS ORDERED: *HR* Heparin 5,000 UNIT/ML VIAL IVP ONE (11:16)
[2020-11-17] MEDS ORDERED: *HR* Metoprolol 5 MG/5 ML VIAL IVP ONE (11:17)
[2020-11-17] MEDS: Heparin 25,000UNIT/250ML 1/2NS 25,000 UNIT/250 ML IV.SOLN IVC SCH (12:40)
[2020-11-17 12:58] LABS: Hematocrit 40.3 % (35.3-44.9); Hemoglobin 12.8 g/dL (11.5-15.4); Mean Corpuscular HGB Conc 31.8 g/dL (31.6-35.5); Mean Corpuscular Hemoglobin 29.4 pg (28.0-33.3); Mean Corpuscular Volume 92.4 fL (83.0-100.0); Mean Platelet Volume 10.8 fL (9.4-12.4); Platelet Count 236 K/mcL (140-400); Red Blood Count 4.36 M/mcL (3.82-4.97); Red Cell Distribution Width 14.3 % (11.5-14.5); White Blood Count 7.7 K/mcL (4.3-11.1)
[2020-11-17 13:44] LABS: INR 1.5; Prothrombin Time 17.5 Seconds (9.4-12.1)
[2020-11-17 13:46] LABS: Heparin anti-factor XA UFH > 2.00 IU/mL (0.30-0.70)
[2020-11-17] MEDS: carvediloL 25 MG TABLET PO SCH (17:59)
[2020-11-18] MEDS ORDERED: Regadenoson 0.4 MG/5 ML SYRINGE IVP ONE (06:41)
[2020-11-18] MEDS ORDERED: lisinopriL 5 MG TABLET PO SCH (09:00)
[2020-11-18] MEDS: Aspirin 81 MG TAB.CHEW PO SCH (12:05)
[2020-11-18] MEDS: Furosemide 40 MG TABLET PO SCH ×2 (12:05→16:26)
[2020-11-18] MEDS: lisinopriL 5 MG TABLET PO SCH (12:05)
[2020-11-18] MEDS: Ondansetron 4 MG/2 ML VIAL IVP PRN (12:11)
[2020-11-18 12:14] LABS: Hematocrit 40.7 % (35.3-44.9); Hemoglobin 13.3 g/dL (11.5-15.4); Mean Corpuscular HGB Conc 32.7 g/dL (31.6-35.5); Mean Corpuscular Volume 91.7 fL (83.0-100.0); Mean Platelet Volume 10.4 fL (9.4-12.4); Platelet Count 254 K/mcL (140-400); Red Blood Count 4.44 M/mcL (3.82-4.97); Red Cell Distribution Width 14.3 % (11.5-14.5); White Blood Count 7.5 K/mcL (4.3-11.1)
[2020-11-18] MEDS: carvediloL 25 MG TABLET PO SCH ×2 (12:17→16:26)
[2020-11-18 12:42] LABS: Calcium 9.8 mg/dL (8.6-10.3); Potassium 4.1 mEq/L (3.5-5.1)
[2020-11-18] MEDS: Heparin 25,000UNIT/250ML 1/2NS 25,000 UNIT/250 ML IV.SOLN IVC SCH (13:28)
[2020-11-18] MEDS: Apixaban 5 MG TABLET PO SCH ×2 (13:49→21:55)
[2020-11-18] MEDS ORDERED: 0.9 % Sodium Chloride 250 ML IVC SCH (18:00)
[2020-11-19 06:39] LABS: Hematocrit 37.8 % (35.3-44.9); Hemoglobin 11.8 g/dL (11.5-15.4); Mean Corpuscular HGB Conc 31.2 g/dL (31.6-35.5); Mean Corpuscular Hemoglobin 29.2 pg (28.0-33.3); Mean Corpuscular Volume 93.6 fL (83.0-100.0); Mean Platelet Volume 10.8 fL (9.4-12.4); Platelet Count 235 K/mcL (140-400); Red Blood Count 4.04 M/mcL (3.82-4.97); Red Cell Distribution Width 14.3 % (11.5-14.5); White Blood Count 7.8 K/mcL (4.3-11.1)
[2020-11-19 06:56] LABS: Calcium 9.3 mg/dL (8.6-10.3); Potassium 4.1 mEq/L (3.5-5.1)
[2020-11-19] MEDS ORDERED: 0.9 % Sodium Chloride 250 ML IVC SCH (08:45)
[2020-11-19] MEDS: carvediloL 25 MG TABLET PO SCH ×2 (11:05→19:55)
[2020-11-19] MEDS: Aspirin 81 MG TAB.CHEW PO SCH (11:05)
[2020-11-19] MEDS: Apixaban 5 MG TABLET PO SCH ×2 (11:05→19:55)
[2020-11-20 06:17] LABS: Hematocrit 36.1 % (35.3-44.9); Hemoglobin 11.3 g/dL (11.5-15.4); Mean Corpuscular HGB Conc 31.3 g/dL (31.6-35.5); Mean Corpuscular Hemoglobin 29.2 pg (28.0-33.3); Mean Corpuscular Volume 93.3 fL (83.0-100.0); Mean Platelet Volume 10.7 fL (9.4-12.4); Platelet Count 218 K/mcL (140-400); Red Blood Count 3.87 M/mcL (3.82-4.97); Red Cell Distribution Width 14.3 % (11.5-14.5); White Blood Count 6.7 K/mcL (4.3-11.1)
[2020-11-20 06:32] LABS: Calcium 9.2 mg/dL (8.6-10.3); Potassium 4.3 mEq/L (3.5-5.1)
[2020-11-20 06:58] VITALS: BP 137/83
== END 2020-11-20 12:03 | disposition home health service (06) ==
LOC: 3BNU 11:50 → EMEROOARM 11:50 → SUATTDRO 13:52 → 3BNU 15:58
PROVIDERS: ADMIT Internal Medicine; ATTEND Registered Nurse

== ENCOUNTER 2020-12-21 11:32 | Observation (INO) ==
[2020-12-21] MEDS ORDERED: Aspirin 81 MG TAB.CHEW PO ONE (12:16)
[2020-12-21 13:03] LABS: Basophils % 0.5 %; Eosinophils # 0.1 K/mcL (0.0-0.6); Eosinophils % 2.3 %; Hemoglobin 11.4 g/dL (11.5-15.4); Immature Granulocytes % 0.3 % (0-4); Lymphocytes # 1.5 K/mcL (0.6-4.6); Lymphocytes % 23.6 %; Mean Corpuscular HGB Conc 30.8 g/dL (31.6-35.5); Mean Corpuscular Hemoglobin 29.5 pg (28.0-33.3); Mean Corpuscular Volume 95.6 fL (83.0-100.0); Mean Platelet Volume 10.9 fL (9.4-12.4); Monocytes # 0.6 K/mcL (0.0-1.3); Monocytes % 9.2 %; Platelet Count 202 K/mcL (140-400); Red Blood Count 3.87 M/mcL (3.82-4.97); Red Cell Distribution Width 15.2 % (11.5-14.5); Segmented Neutrophils % 64.1 %; White Blood Count 6.2 K/mcL (4.3-11.1)
[2020-12-21 13:10] LABS: INR 1.4; Prothrombin Time 16.4 Seconds (9.4-12.1)
[2020-12-21 13:13] LABS: Activated Partial Thrombo Time 32.3 Seconds (26.0-36.0)
[2020-12-21 13:24] LABS: Alanine Aminotransferase 12 Units/L (7-52); Albumin/Globulin Ratio 1.5 (1.1-2.2); Alkaline Phosphatase 91 Units/L (34-104); Aspartate Amino Transferase 17 Units/L (13-39); BUN/Creatinine Ratio 15 (6-26); Bilirubin,Direct 0.1 mg/dL (0.0-0.2); Bilirubin,Indirect 0.7 mg/dL (0.0-1.0); Bilirubin,Total 0.8 mg/dL (0.3-1.0); Blood Urea Nitrogen 16 mg/dL (8-23); Calcium 9.5 mg/dL (8.6-10.3); Carbon Dioxide 25 mEq/L (23-29); Chloride 106 mEq/L (98-107); Globulin 2.7 g/dL (2.4-3.5); Glucose 112 mg/dL (70-105); Lipase 28 Units/L (11-82); Osmolality,Calculated 294 (280-300); Potassium 4.1 mEq/L (3.5-5.1); Sodium 141 mEq/L (136-145); Total Protein 6.7 g/dL (6.4-8.9); Troponin I < 0.03 ng/mL (< 0.04); eGFR For African Americans 58 (> 60); eGFR For Non-African Americans 47 (> 60)
[2020-12-21] MEDS ORDERED: Melatonin 3 MG TABLET PO PRN ×2 (15:21→21:00)
[2020-12-21] MEDS ORDERED: Naloxone 0.4 MG/ML INJ IVP PRN (15:21)
[2020-12-21] MEDS ORDERED: Nitroglycerin 0.4 MG TAB.SUBL SL PRN (17:00)
[2020-12-21] MEDS: carvediloL 25 MG TABLET PO SCH (17:35)
[2020-12-21] MEDS: Apixaban 5 MG TABLET PO SCH (20:36)
[2020-12-22] MEDS ORDERED: Ondansetron 4 MG/2 ML VIAL IVP ONE (03:04)
[2020-12-22 03:45] LABS: Basophils % 0.2 %; Eosinophils # 0.1 K/mcL (0.0-0.6); Eosinophils % 1.5 %; Hematocrit 35.4 % (35.3-44.9); Hemoglobin 11.3 g/dL (11.5-15.4); Immature Granulocytes % 0.1 % (0-4); Lymphocytes # 1.7 K/mcL (0.6-4.6); Lymphocytes % 20.6 %; Mean Corpuscular HGB Conc 31.9 g/dL (31.6-35.5); Mean Corpuscular Hemoglobin 29.9 pg (28.0-33.3); Mean Corpuscular Volume 93.7 fL (83.0-100.0); Mean Platelet Volume 11.2 fL (9.4-12.4); Monocytes # 0.9 K/mcL (0.0-1.3); Monocytes % 10.3 %; Neutrophils # 5.6 K/mcL (1.6-8.9); Platelet Count 211 K/mcL (140-400); Red Blood Count 3.78 M/mcL (3.82-4.97); Red Cell Distribution Width 15.2 % (11.5-14.5); Segmented Neutrophils % 67.3 %; White Blood Count 8.3 K/mcL (4.3-11.1)
[2020-12-22 03:49] LABS: Troponin I 0.03 ng/mL (< 0.04)
[2020-12-22] MEDS ORDERED: *HR* Labetalol 20 MG/4 ML SYRINGE IVP ONE (03:59)
[2020-12-22] MEDS ORDERED: Ibuprofen 600 MG TABLET PO PRN (04:00)
[2020-12-22] MEDS: Multivit/Ca/Min/Fe/FA 1 TAB TABLET PO SCH (07:53)
[2020-12-22] MEDS: Apixaban 5 MG TABLET PO SCH ×2 (07:53→20:26)
[2020-12-22] MEDS: carvediloL 25 MG TABLET PO SCH ×2 (07:54→17:15)
[2020-12-22] MEDS ORDERED: Aspirin Enteric Coated 81 MG Tablet PO SCH (09:00)
[2020-12-22] MEDS ORDERED: Isosorbide MONOnitrate (24 HR) 30 MG TAB.ER.24H PO SCH (09:00)
[2020-12-22] MEDS ORDERED: Perflutren Lipid Microsphere 1.3 ML in 0.9 % Sodium Chloride 8.7 ML IVP PRN (10:09)
[2020-12-22] MEDS ORDERED: Ketorolac 15 MG/ML VIAL IVP ONE (11:25)
[2020-12-22] MEDS ORDERED: Prochlorperazine 10 MG/2 ML VIAL IVP ONE (11:30)
[2020-12-23] MEDS ORDERED: *HR* Labetalol 20 MG/4 ML SYRINGE IVP ONE (03:58)
[2020-12-23] MEDS: Isosorbide MONOnitrate (24 HR) 60 MG TAB.ER.24H PO SCH (08:28)
[2020-12-23] MEDS: Multivit/Ca/Min/Fe/FA 1 TAB TABLET PO SCH (08:28)
[2020-12-23] MEDS: carvediloL 25 MG TABLET PO SCH ×2 (08:28→16:49)
[2020-12-23] MEDS: Apixaban 5 MG TABLET PO SCH ×2 (08:29→19:53)
[2020-12-23] MEDS ORDERED: Perflutren Lipid Microsphere 1.3 ML in 0.9 % Sodium Chloride 8.7 ML IVP PRN (12:11)
[2020-12-24 07:17] VITALS: BP 184/71; PULSE 53; TEMP 98; O2SAT 93
[2020-12-24] MEDS: Multivit/Ca/Min/Fe/FA 1 TAB TABLET PO SCH (07:31)
[2020-12-24] MEDS: carvediloL 25 MG TABLET PO SCH (07:32)
[2020-12-24] MEDS: Isosorbide MONOnitrate (24 HR) 60 MG TAB.ER.24H PO SCH (07:32)
[2020-12-24] MEDS: Apixaban 5 MG TABLET PO SCH (07:32)
== END 2020-12-24 10:01 | disposition home or self-care (01) ==
LOC: EMEROOARM 11:32 → 3BNU 11:32 → SUATTDRO 14:43 → 3BNU 16:33
PROVIDERS: ADMIT Internal Medicine; ATTEND Registered Nurse

== ENCOUNTER 2021-02-18 10:23 | Observation (INO) ==
[2021-02-18 11:23] LABS: Basophils % 0.3 %; Eosinophils # 0.1 K/mcL (0.0-0.6); Eosinophils % 1.9 %; Hematocrit 40.6 % (35.3-44.9); Hemoglobin 12.8 g/dL (11.5-15.4); Immature Granulocytes % 0.1 % (0-4); Lymphocytes # 1.5 K/mcL (0.6-4.6); Lymphocytes % 21.7 %; Mean Corpuscular HGB Conc 31.5 g/dL (31.6-35.5); Mean Corpuscular Hemoglobin 29.4 pg (28.0-33.3); Mean Corpuscular Volume 93.1 fL (83.0-100.0); Mean Platelet Volume 11.4 fL (9.4-12.4); Monocytes # 0.5 K/mcL (0.0-1.3); Monocytes % 8.1 %; Neutrophils # 4.5 K/mcL (1.6-8.9); Platelet Count 212 K/mcL (140-400); Red Blood Count 4.36 M/mcL (3.82-4.97); Red Cell Distribution Width 14.9 % (11.5-14.5); Segmented Neutrophils % 67.9 %; White Blood Count 6.7 K/mcL (4.3-11.1)
[2021-02-18 11:31] LABS: INR 1.4; Prothrombin Time 15.1 Seconds (9.4-12.1)
[2021-02-18 11:33] LABS: Activated Partial Thrombo Time 35.1 Seconds (26.0-36.0)
[2021-02-18 11:34] LABS: Calcium 9.5 mg/dL (8.6-10.3); Potassium 4.1 mEq/L (3.5-5.1); Troponin I 0.03 ng/mL (< 0.04)
[2021-02-18] MEDS: Aspirin 81 MG TAB.CHEW PO SCH (11:51)
[2021-02-18 12:53] LABS: Influenza A PCR Negative (Negative); Influenza B PCR Negative (Negative); Resp. Syncytial Virus PCR Negative (Negative)
[2021-02-18 12:55] LABS: SARS-CoV-2 by PCR (In House) Negative (Negative)
[2021-02-18] MEDS ORDERED: Mag Hydrox/Al Hydrox/Simeth 30 ML UDC PO PRN (14:44)
[2021-02-18] MEDS ORDERED: MOM Conc 10 ML UD.LIQ PO PRN (14:44)
[2021-02-18] MEDS ORDERED: Ondansetron ODT 4 MG TAB.RAPDIS SL PRN (14:44)
[2021-02-18] MEDS ORDERED: Melatonin 3 MG TABLET PO PRN (14:44)
[2021-02-18] MEDS ORDERED: Naloxone 0.4 MG/ML INJ IVP PRN (14:44)
[2021-02-18] MEDS ORDERED: Ketorolac 15 MG/ML VIAL IVP ONE (16:41)
[2021-02-18] MEDS ORDERED: Prochlorperazine 10 MG/2 ML VIAL IVP ONE (16:45)
[2021-02-18] MEDS ORDERED: carvediloL 25 MG TABLET PO SCH (18:00)
[2021-02-18] MEDS: Furosemide 40 MG TABLET PO SCH (18:41)
[2021-02-18] MEDS: carvediloL 25 MG TABLET PO SCH (18:55)
[2021-02-18] MEDS: lisinopriL 20 MG TABLET PO SCH (18:59)
[2021-02-18] MEDS: Acetaminophen 325 MG TABLET PO SCH (20:50)
[2021-02-18] MEDS: Apixaban 5 MG TABLET PO SCH (20:50)
[2021-02-19] MEDS ORDERED: *HR* Enoxaparin 40 MG/0.4 ML SYRINGE SQ SCH (06:00)
[2021-02-19 06:42] VITALS: TEMP 97.6
[2021-02-19] MEDS: Acetaminophen 325 MG TABLET PO SCH (07:54)
[2021-02-19] MEDS: Apixaban 5 MG TABLET PO SCH (07:54)
[2021-02-19] MEDS: Furosemide 40 MG TABLET PO SCH (07:54)
[2021-02-19] MEDS: lisinopriL 20 MG TABLET PO SCH (07:54)
[2021-02-19] MEDS: carvediloL 25 MG TABLET PO SCH (07:54)
[2021-02-19] MEDS: Aspirin 81 MG TAB.CHEW PO SCH (07:54)
[2021-02-19 10:41] VITALS: BP 146/76; PULSE 54; O2SAT 94
[2021-02-19] MEDS ORDERED: Isosorbide MONOnitrate (24 HR) 30 MG TAB.ER.24H PO ONE ×2 (11:15)
[2021-02-19] MEDS ORDERED: Isosorbide MONOnitrate (24 HR) 60 MG TAB.ER.24H PO SCH (12:00)
[2021-02-20] MEDS ORDERED: Isosorbide MONOnitrate (24 HR) 60 MG TAB.ER.24H PO SCH (12:00)
== END 2021-02-19 14:30 | disposition home or self-care (01) ==
LOC: EMEROOARM 10:23 → 3BNU 10:23
PROVIDERS: ADMIT Internal Medicine; ATTEND Internal Medicine

== ENCOUNTER 2021-07-28 10:15 | Observation (INO) ==
[2021-07-28] MEDS ORDERED: 0.9 % Sodium Chloride 1,000 ML IVC ONE (10:50)
[2021-07-28] MEDS ORDERED: Ondansetron 4 MG/2 ML VIAL IVP ONE (10:50)
[2021-07-28 11:09] LABS: Basophils % 0.4 %; Eosinophils # 0.1 K/mcL (0.0-0.6); Eosinophils % 1.2 %; Hematocrit 39.2 % (35.3-44.9); Hemoglobin 12.5 g/dL (11.5-15.4); Immature Granulocytes % 0.2 % (0-4); Lymphocytes # 1.4 K/mcL (0.6-4.6); Lymphocytes % 25.4 %; Mean Corpuscular HGB Conc 31.9 g/dL (31.6-35.5); Mean Corpuscular Hemoglobin 29.8 pg (28.0-33.3); Mean Corpuscular Volume 93.6 fL (83.0-100.0); Mean Platelet Volume 10.1 fL (9.4-12.4); Monocytes # 0.8 K/mcL (0.0-1.3); Monocytes % 13.4 %; Neutrophils # 3.4 K/mcL (1.6-8.9); Platelet Count 200 K/mcL (140-400); Red Blood Count 4.19 M/mcL (3.82-4.97); Red Cell Distribution Width 13.9 % (11.5-14.5); Segmented Neutrophils % 59.4 %; White Blood Count 5.7 K/mcL (4.3-11.1)
[2021-07-28 11:39] LABS: Albumin/Globulin Ratio 1.4 (1.1-2.2); Bilirubin,Direct 0.2 mg/dL (0.0-0.2); Bilirubin,Indirect 0.4 mg/dL (0.0-1.0); Bilirubin,Total 0.6 mg/dL (0.3-1.0); Calcium 9.5 mg/dL (8.6-10.3); Globulin 2.8 g/dL (2.4-3.5); Potassium 3.9 mEq/L (3.5-5.1); Total Protein 6.8 g/dL (6.4-8.9)
[2021-07-28 11:46] LABS: Troponin I 0.03 ng/mL (< 0.04)
[2021-07-28 12:32] LABS: Bacteria,Urine Few per hpf (None-Few); Bilirubin,Urine Negative (Negative); Blood,Urine Negative (Negative); Clarity,Urine Clear (Clear); Color,Urine Light-Yellow (Yellow); Glucose,Urine (UA) Normal (Normal); Ketones,Urine Negative (Negative); Leukocyte Esterase,Urine Trace (Negative); Mucus,Urine Few per lpf (None-Few); Nitrite,Urine Negative (Negative); Protein,Urine Trace mg/dL (Neg-Trace); RBC,Urine 0-3 per hpf (0-3); Specific Gravity,Urine 1.009 (1.010-1.025); Squamous Epithelial Cell,Urine Few per hpf (None-Few); Urobilinogen,Urine Normal (Normal)
[2021-07-28] MEDS ORDERED: Ondansetron ODT 4 MG TAB.RAPDIS SL PRN (13:05)
[2021-07-28] MEDS ORDERED: Acetaminophen 325 MG TABLET PO PRN (13:05)
[2021-07-28] MEDS ORDERED: Melatonin 3 MG TABLET PO PRN (13:05)
[2021-07-28] MEDS ORDERED: Naloxone 0.4 MG/ML INJ IVP PRN (13:05)
[2021-07-28] MEDS ORDERED: Mag Hydrox/Al Hydrox/Simeth 30 ML UDC PO PRN (13:05)
[2021-07-28 13:31] LABS: Magnesium 1.8 mg/dL (1.6-2.6); Phosphorous 4.1 mg/dL (2.7-4.5)
[2021-07-28] MEDS ORDERED: Nitroglycerin 0.4 MG TAB.SUBL SL PRN (14:00)
[2021-07-28 14:37] LABS: Adenovirus Not Detected (Not Detect); Bordetella Pertussis Not Detected (Not Detect); Chlamydophila pneumoniae Not Detected (Not Detect); Coronavirus 229E Not Detected (Not Detect); Coronavirus HKU1 Not Detected (Not Detect); Coronavirus NL63 Not Detected (Not Detect); Coronavirus OC43 Not Detected (Not Detect); Human Metapneumovirus Not Detected (Not Detect); Human Rhinovirus/Enterovirus Not Detected (Not Detect); Influenza A Subtype 2009 H1 Not Detected (Not Detect); Influenza B Not Detected (Not Detect); Mycoplasma pneumoniae Not Detected (Not Detect); Parainfluenza Virus 1 Not Detected (Not Detect); Parainfluenza Virus 2 Not Detected (Not Detect); Parainfluenza Virus 3 Not Detected (Not Detect); Parainfluenza Virus 4 Not Detected (Not Detect); Respiratory Syncytial Virus Not Detected (Not Detect); SARS-CoV-2 Not Detected (Not Detect)
[2021-07-28] MEDS: carvediloL 25 MG TABLET PO SCH ×2 (14:49→21:27)
[2021-07-28] MEDS: 0.9 % Sodium Chloride 1,000 ML IVC SCH (14:49)
[2021-07-28] MEDS ORDERED: carvediloL 25 MG TABLET PO SCH (17:00)
[2021-07-28] MEDS: Apixaban 2.5 MG TABLET PO SCH (21:27)
[2021-07-29] MEDS: 0.9 % Sodium Chloride 1,000 ML IVC SCH ×2 (00:09→13:11)
[2021-07-29 01:11] LABS: Hematocrit 37.1 % (35.3-44.9); Hemoglobin 11.7 g/dL (11.5-15.4); Mean Corpuscular HGB Conc 31.5 g/dL (31.6-35.5); Mean Corpuscular Hemoglobin 29.8 pg (28.0-33.3); Mean Corpuscular Volume 94.4 fL (83.0-100.0); Mean Platelet Volume 10.6 fL (9.4-12.4); Platelet Count 182 K/mcL (140-400); Red Blood Count 3.93 M/mcL (3.82-4.97); Red Cell Distribution Width 13.8 % (11.5-14.5); White Blood Count 5.5 K/mcL (4.3-11.1)
[2021-07-29 01:30] LABS: Calcium 8.7 mg/dL (8.6-10.3)
[2021-07-29] MEDS: Isosorbide MONOnitrate (24 HR) 60 MG TAB.ER.24H PO SCH (08:55)
[2021-07-29] MEDS: Apixaban 2.5 MG TABLET PO SCH ×2 (08:56→21:00)
[2021-07-29] MEDS: carvediloL 25 MG TABLET PO SCH ×2 (08:56→16:14)
[2021-07-29] MEDS: amLODIPine 5 MG TABLET PO SCH (08:56)
[2021-07-29] MEDS ORDERED: *HR* Promethazine 25 MG/ML VIAL IM PRN (09:54)
[2021-07-29] MEDS ORDERED: Ondansetron 4 MG/2 ML VIAL IVP PRN (09:54)
[2021-07-29] MEDS: cefTRIAXone 1,000 MG in 0.9 % Sodium Chloride 10 ML IVP SCH (13:11)
[2021-07-30 02:59] LABS: Hematocrit 33.2 % (35.3-44.9); Hemoglobin 10.4 g/dL (11.5-15.4); Mean Corpuscular HGB Conc 31.3 g/dL (31.6-35.5); Mean Corpuscular Hemoglobin 29.8 pg (28.0-33.3); Mean Corpuscular Volume 95.1 fL (83.0-100.0); Mean Platelet Volume 10.5 fL (9.4-12.4); Platelet Count 166 K/mcL (140-400); Red Blood Count 3.49 M/mcL (3.82-4.97); Red Cell Distribution Width 13.4 % (11.5-14.5); White Blood Count 5.2 K/mcL (4.3-11.1)
[2021-07-30 03:12] LABS: Calcium 8.4 mg/dL (8.6-10.3); Potassium 3.9 mEq/L (3.5-5.1)
[2021-07-30] MEDS: 0.9 % Sodium Chloride 1,000 ML IVC SCH ×3 (04:11→14:04)
[2021-07-30] MEDS: amLODIPine 5 MG TABLET PO SCH (08:42)
[2021-07-30] MEDS: Apixaban 2.5 MG TABLET PO SCH ×2 (08:43→20:18)
[2021-07-30] MEDS: carvediloL 25 MG TABLET PO SCH ×2 (08:43→16:23)
[2021-07-30] MEDS: Isosorbide MONOnitrate (24 HR) 60 MG TAB.ER.24H PO SCH (08:43)
[2021-07-30] MEDS: cefTRIAXone 1,000 MG in 0.9 % Sodium Chloride 10 ML IVP SCH (13:38)
[2021-07-31 01:52] LABS: Hematocrit 32.7 % (35.3-44.9); Hemoglobin 10.5 g/dL (11.5-15.4); Mean Corpuscular HGB Conc 32.1 g/dL (31.6-35.5); Mean Corpuscular Hemoglobin 30.3 pg (28.0-33.3); Mean Corpuscular Volume 94.2 fL (83.0-100.0); Mean Platelet Volume 10.7 fL (9.4-12.4); Platelet Count 166 K/mcL (140-400); Red Blood Count 3.47 M/mcL (3.82-4.97); Red Cell Distribution Width 13.4 % (11.5-14.5); White Blood Count 5.9 K/mcL (4.3-11.1)
[2021-07-31 02:12] LABS: Calcium 8.6 mg/dL (8.6-10.3); Potassium 3.8 mEq/L (3.5-5.1)
[2021-07-31] MEDS: 0.9 % Sodium Chloride 1,000 ML IVC SCH (09:46)
[2021-07-31] MEDS: carvediloL 25 MG TABLET PO SCH ×2 (10:16→14:27)
[2021-07-31] MEDS: amLODIPine 5 MG TABLET PO SCH ×2 (10:17→14:28)
[2021-07-31] MEDS: Isosorbide MONOnitrate (24 HR) 60 MG TAB.ER.24H PO SCH ×2 (10:17→14:26)
[2021-07-31] MEDS ORDERED: *HR* Propofol 200 MG/20 ML VIAL IVP ONE (11:06)
[2021-07-31] MEDS ORDERED: Lidocaine -MPF 2% 5 ML VIAL ONE (11:06)
[2021-07-31] MEDS ORDERED: lisinopriL 20 MG TABLET PO SCH (11:30)
[2021-07-31 15:37] VITALS: BP 165/73; PULSE 54; TEMP 98.2; O2SAT 93
== END 2021-07-31 17:20 | disposition home or self-care (01) ==
LOC: EMEROOARM 10:15 → 2ANU 10:15 → SUATTDRO 14:02 → 2ANU 14:31
PROVIDERS: ADMIT Family Medicine; ATTEND Internal Medicine